=== PATIENT | female | born 1940 | race Hispanic/Latino ===

== ENCOUNTER 2018-01-22 17:34 | Inpatient (IN) | payer MEDICARE, BC ==
[2018-01-22] MEDS ORDERED: Sodium Chloride 0.9% 1,000 ML IV ONE (18:22)
[2018-01-22] MEDS ORDERED: Iohexol 240 (50 ml) ONE (18:55)
[2018-01-22 19:00] LABS: BASO % 0.3 % (0.0-2.0); EOS % 0.2 % (0.0-4.0); HEMOGLOBIN 14.3 g/dL (11.0-16.0); LYMPH # 2.5 K/uL (1.0-4.3); LYMPH % 16.8 % (20.0-40.0); MEAN CELL VOLUME 93.5 fL (81.0-99.0); MEAN CORPUSCULAR HEMOGLOBIN 33.1 pg (27.0-31.0); MEAN CORPUSCULAR HGB CONC 35.4 g/dL (33.0-37.0); MEAN PLATELET VOLUME 7.3 fL (7.2-11.7); MONO # 1.2 K/uL (0.0-0.8); MONO % 8.3 % (0.0-10.0); NEUT # 11.1 K/uL (1.8-7.0); NEUT % 74.4 % (50.0-75.0); RBC 4.32 Mil/uL (3.80-5.20); RED CELL DISTRIBUTION WIDTH 13.5 % (11.5-14.5); WHITE BLOOD COUNT 14.9 K/uL (4.8-10.8)
[2018-01-22 19:14] LABS: ALB/GLOB RATIO 1.3 (1.0-2.1); ALBUMIN 4.5 g/dL (3.5-5.0); CALCIUM 9.3 mg/dl (8.6-10.4)
[2018-01-22 19:18] LABS: SQUAMOUS EPITHIAL 8 /hpf (0-5); URINE BACTERIA RARE (<OCC); URINE BILIRUBIN NEGATIVE (NEGATIVE); URINE BLOOD 1+ (NEGATIVE); URINE CLARITY Hazy (Clear); URINE GLUCOSE (UA) NORMAL (Normal); URINE LEUKOCYTE ESTERASE 3+ Leu/uL (Negative); URINE PROTEIN 1+ mg/dL (NEGATIVE); URINE UROBILINOGEN NORMAL mg/dL (0.2-1.0)
[2018-01-22 19:27] LABS: URINE COLOR YELLOW (YELLOW)
--- NOTE | 2018-01-22 19:44 | C.PDOC ---
History Of Present Illness 77 year old female presents to the emergency department with complaints of a history of abdominal pain and nausea with vomiting. Patient reports she started experiencing these symptoms over the weekend on Saturday night (11-18-17). Patient reports she took sleeping pills on Saturday night (11-19-17) and woke up groggy the next morning. Patient reports that shortly after waking up she had a mild syncopal episode and bumped her head. Patient states later on she went out for lunch and had a decreased appetite, and started vomiting and feeling nauseated, experiencing abdominal discomfort. Patient states she had some loose stool which eventually became black. Despite her daughter trying bananas, apple sauce, and fluid, the patient was not able to tolerate anything. Patient was seen by an Urgent Care doctor this morning who did a full workup, performed a rectal exam which resulted guaiac negative, and sent the patient to the ED for a CT scan. As of this morning, the patient is still vomiting but is able to tolerate small amounts of yogurt and sips of water this afternoon without throwing up. Patient states she is supposed to leave for a cruise tomorrow morning. Time Seen by Provider: 01/22/18 18:07 Chief Complaint (Nursing): Abdominal Pain History/Exam Limitations: no limitations Onset/Duration Of Symptoms: Days (4), Intermittent Episodes (vomiting) Current Symptoms Are (Timing): Still Present Context: Food, Recent Trauma Associated Symptoms: Nausea, Vomiting, Diarrhea, Loss Of Appetite, Other ( syncope, black stool, abdominal pain) Past Medical History Reviewed: Historical Data, Nursing Documentation, Vital Signs Vital Signs: Last Vital Signs Temp 97.9 F 01/22/18 17:57 Pulse 79 01/22/18 17:57 Resp 20 01/22/18 17:57 BP 134/87 01/22/18 17:57 Pulse Ox 96 01/22/18 21:32 - Medical History PMH: HTN Surgical History: No Surg Hx Family History: States: No Known Family Hx - Social History Hx Alcohol Use: No Hx Substance Use: No - Immunization History Hx Tetanus Toxoid Vaccination: No Hx Influenza Vaccination: Yes (2017) Hx Pneumococcal Vaccination: No Review Of Systems Gastrointestinal: Positive for: Nausea, Vomiting, Abdominal Pain, Diarrhea, Melena Neurological: Positive for: Other (syncope) Physical Exam - Physical Exam Appears: Non-toxic, No Acute Distress Skin: Normal Color, Warm Head: Atraumatic, Normacephalic Eye(s): bilateral: Normal Inspection Oral Mucosa: Dry Cardiovascular: Rhythm Regular Respiratory: Normal Breath Sounds Gastrointestinal/Abdominal: Bowel Sounds (normal), Soft, No Tenderness, No Guarding, No Rebound Neurological/Psych: Oriented x3, Normal Speech, Normal Cognition ED Course And Treatment - Laboratory Results Result Diagrams: 01/22/18 18:53 01/22/18 18:53 Lab Interpretation: Abnormal (WBC 14.9 with left shift, BUN 31, UA WBC 290 culture sent) O2 Sat by Pulse Oximetry: 96 (RA) Pulse Ox Interpretation: Normal - CT Scan/US Abdomen and Pelvis w/Contrast Other Rad Studies (CT/US): Read By Radiologist, Radiology Report Reviewed CT/US Interpretation: HISTORY: VOMITING / NAUSEA. COMPARISON: No prior. FINDINGS: BOWEL: There mildly dilated small bowel loops seen centrally within the abdomen concerning for early mechanical bowel obstruction. Followup is advised. There is no hepatic or splenic enlargement. There are no masses or abnormal intra-abdominal calcifications. 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 Right hip arthroplasty. Left hip osteoarthritis. OTHER FINDINGS: None. IMPRESSION: Possible early mechanical bowel obstruction. Follow-up advised. Liver: Unremarkable. No mass. Gallbladder and bile ducts: Unremarkable. No calcified stones. No ductal dilation. Pancreas: Unremarkable. No mass. No ductal dilation. Spleen: Unremarkable. No splenomegaly. Adrenals: Unremarkable. No mass. Kidneys and ureters: Unremarkable. No solid mass. No hydronephrosis. Stomach and bowel: There is abnormal dilatation of the duodenum and proximal to mid jejunum. A. transition point is noted at the level of the mid/distal jejunum which may be related to a small internal. hernia or adhesion. No mucosal thickening. No pneumatosis. PELVIS: Appendix: No findings to suggest acute appendicitis. Bladder: Unremarkable. No mass. Reproductive: Not well-seen due to beam hardening artifact.. ABDOMEN and PELVIS: Intraperitoneal space: There is small perihepatic ascites. Pelvic ascites is present. Hazy density is. noted within the mesentery. No free air. Bones/joints: There is beam hardening artifact associated with the right total hip prosthesis which. degrades images of the pelvis. There is a levoscoliosis of the lumbar spine with advanced secondary. degenerative changes. Moderate osteoarthritis seen of the left hip. No acute fracture. No. dislocation. Soft tissues: There is a small umbilical hernia measuring 8 mm containing fat. No evidence of strain. delayed. Vasculature: Unremarkable. No abdominal aortic aneurysm. Lymph nodes: Unremarkable. No enlarged lymph nodes. IMPRESSION: 1. Acute small bowel obstruction. Transition point in mid-distal jejunum suggesting possible internal. hernia . 2. Small amount of pelvic and abdominal ascites. 3. Small hiatal hernia. Progress Note: Plan: CT Abdomen and Pelvis with Contrast. CMP. Lipase. CBC. NaCl IV Fluids. Urine Culture. Urinalysis Reevaluation Time: 21:57 Reassessment Condition: Unchanged (Patient states abdomen feels distended but is still not tender.) - Physician Consult Information Outcome Of Conversation: Case discussed with Dr Sullivan and Dr Haile. Patient to be admitted for small bowel obstruction. Disposition - Disposition Disposition: HOSPITALIZED Disposition Time: 21:58 Condition: FAIR - POA Present On Arrival: None - Clinical Impression Clinical Impression: Small bowel obstruction - Scribe Statement The provider has reviewed the documentation as recorded by the Scribe (Otoniel Doran) Provider Attestation: All medical record entries made by the Scribe were at my direction and personally dictated by me. I have reviewed the chart and agree that the record accurately reflects my personal performance of the history, physical exam, medical decision making, and the department course for this patient. I have also personally directed, reviewed, and agree with the discharge instructions and disposition.
--- NOTE | 2018-01-22 21:28 | CT ---
EXAM: CT Abdomen and Pelvis With Intravenous Contrast EXAM DATE/TIME: Exam ordered 01/22/2018 6:22 PM CLINICAL HISTORY: 77 years old, female; Pain; Abdominal pain; Generalized; Additional info: Abd pain TECHNIQUE: Axial computed tomography images of the abdomen and pelvis with intravenous contrast. All CT scans at this facility use one or more dose reduction techniques, viz.: automated exposure control; ma/kV adjustment per patient size (including targeted exams where dose is matched to indication; i.e. head); or iterative reconstruction technique. Coronal and sagittal reformatted images were created and reviewed. CONTRAST: 100 mL of omnipaque 300 administered intravenously. COMPARISON: No relevant prior studies available. FINDINGS: Lung bases: Unremarkable. No mass. No consolidation. Heart: Coronary artery calcifications present. Mediastinum: There is a small hiatal hernia. ABDOMEN: Liver: Unremarkable. No mass. Gallbladder and bile ducts: Unremarkable. No calcified stones. No ductal dilation. Pancreas: Unremarkable. No mass. No ductal dilation. Spleen: Unremarkable. No splenomegaly. Adrenals: Unremarkable. No mass. Kidneys and ureters: Unremarkable. No solid mass. No hydronephrosis. Stomach and bowel: There is abnormal dilatation of the duodenum and proximal to mid jejunum. A transition point is noted at the level of the mid/distal jejunum which may be related to a small internal hernia or adhesion. No mucosal thickening. No pneumatosis. PELVIS: Appendix: No findings to suggest acute appendicitis. Bladder: Unremarkable. No mass. Reproductive: Not well-seen due to beam hardening artifact.. ABDOMEN and PELVIS: Intraperitoneal space: There is small perihepatic ascites. Pelvic ascites is present. Hazy density is noted within the mesentery. No free air. Bones/joints: There is beam hardening artifact associated with the right total hip prosthesis which degrades images of the pelvis. There is a levoscoliosis of the lumbar spine with advanced secondary degenerative changes. Moderate osteoarthritis seen of the left hip. No acute fracture. No dislocation. Soft tissues: There is a small umbilical hernia measuring 8 mm containing fat. No evidence of strain delayed. Vasculature: Unremarkable. No abdominal aortic aneurysm. Lymph nodes: Unremarkable. No enlarged lymph nodes. IMPRESSION: 1. Acute small bowel obstruction. Transition point in mid-distal jejunum suggesting possible internal hernia . 2. Small amount of pelvic and abdominal ascites. 3. Small hiatal hernia. .
[2018-01-22] MEDS ORDERED: Potassium Chloride 20 mEq 0 ML ONE (23:33)
--- NOTE | 2018-01-22 23:41 | CP.PCM.HP ---
<Francesca Brown - Last Filed: 01/23/18 00:01> History of Present Illness - History of Present Illness History of Present Illness: H&P: 77 year old female with past medical history of HTN, gluacoma presented to hospital for abdominal discomfort and N/V. Patient states abd discomfort began about 3 days ago. Discomfort was intermittent with worsening since earlier today. Patient had one episode of vomiting earlier in the day today. She also complains of decreased appetite but was able to tolerate a very small meal earlier in the day. She states that her last BM was 3 days ago and was very small in nature. She states that now she si not passing gas but has a lot of belching. Denies having any F/C, CP, SOB, urinary symptoms. Ct of abd/pelvis done with PO contrast in ED showed acute SBO. Patient was able to tolerate PO contrast intake without any vomiting. PMHx: stated above Sx: hip replacement, tubal ligation Social: denies NKDA Meds: Ambien 10 mg po HS, Benicar HCTZ 10/12.5 mg po qd, Ecotrin 81 mg po qd, Toprol XL 50 mg po qd, Dorzolamide-Timolol ophthalmic 1 drop twice a day Present on Admission - Present on Admission Any Indicators Present on Admission: No Review of Systems - Constitutional Constitutional: absent: Chills, Fever - EENT Eyes: absent: Blurred Vision, Change in Vision, Other Visual Disturbances Nose/Mouth/Throat: absent: Nasal Congestion, Nasal Discharge, Sore Throat - Cardiovascular Cardiovascular: absent: Chest Pain, Dyspnea, Dyspnea on Exertion, Edema - Respiratory Respiratory: absent: Cough, Dyspnea, Wheezing, Chest Congestion - Gastrointestinal Gastrointestinal: Abdominal Pain, Change in Bowel Habits, Change in Stool Character, Constipation, Nausea, Vomiting. absent: Bloating, Coffee Ground Emesis, Diarrhea, Hematemesis, Hematochezia - Genitourinary Genitourinary: absent: Difficulty Urinating, Dysuria, Urinary Frequency - Musculoskeletal Musculoskeletal: absent: Back Pain, Numbness, Tingling - Integumentary Integumentary: absent: Acne, Lesions, Rash, Wounds - Neurological Neurological: absent: Syncope, Tingling, Weakness - Psychiatric Psychiatric: absent: Anxiety, Depression Past Patient History - Past Social History Smoking Status: Never Smoked Chewing Tobacco Use: No Cigar Use: No Alcohol: None Drugs: Denies - CARDIAC Hx Hypertension: Yes - HEENT Hx Glaucoma: Yes - PSYCHIATRIC Hx Substance Use: No - SURGICAL HISTORY Hx Cataract Extraction: Yes (L eye) Hx Eye Surgery: Yes (b/l Laser surgery) Hx Joint Replacement: Yes (R hip replacement) Hx Tubal Ligation: Yes - ANESTHESIA Hx Anesthesia: Yes Hx Anesthesia Reactions: No Meds Allergies/Adverse Reactions: Allergies Allergy/AdvReac Type Severity Reaction Status Date / Time antihistamine Allergy Uncoded 01/22/18 18:05 Physical Exam - Constitutional Appears: Non-toxic, No Acute Distress - Head Exam Head Exam: ATRAUMATIC, NORMOCEPHALIC - Eye Exam Eye Exam: EOMI, Normal appearance - ENT Exam ENT Exam: Mucous Membranes Moist - Respiratory Exam Respiratory Exam: Clear to Auscultation Bilateral. absent: Accessory Muscle Use , Rales, Rhonchi, Wheezes, Respiratory Distress - Cardiovascular Exam Cardiovascular Exam: REGULAR RHYTHM, +S1, +S2. absent: Diastolic murmur, Gallop , Rubs, Systolic Murmur - GI/Abdominal Exam GI & Abdominal Exam: Diminished Bowel Sounds, Soft. absent: Distended, Firm, Guarding, Hernia, Rebound, Rigid, Tenderness - Extremities Exam Extremities exam: Negative for: pedal edema, tenderness - Neurological Exam Neurological exam: Alert, Oriented x3 - Psychiatric Exam Psychiatric exam: Normal Affect, Normal Mood - Skin Skin Exam: Dry, Intact, Normal Color, Warm Results - Vital Signs Recent Vital Signs: Last Vital Signs Temp 97.9 F 01/22/18 17:57 Pulse 79 01/22/18 17:57 Resp 20 01/22/18 17:57 BP 134/87 01/22/18 17:57 Pulse Ox 96 01/22/18 21:58 - Labs Result Diagrams: 01/22/18 18:53 01/22/18 18:53 Labs: Laboratory Results - last 24 hr 01/22/18 01/22/18 01/22/18 18:53 18:53 18:53 WBC 14.9 H RBC 4.32 Hgb 14.3 Hct 40.4 MCV 93.5 MCH 33.1 H MCHC 35.4 RDW 13.5 Plt Count 350 MPV 7.3 Neut % (Auto) 74.4 Lymph % (Auto) 16.8 L [place] % (Auto) 8.3 Eos % (Auto) 0.2 Baso % (Auto) 0.3 Neut # (Auto) 11.1 H Lymph # (Auto) 2.5 [place] # (Auto) 1.2 H Eos # (Auto) 0.0 Baso # (Auto) 0.0 Sodium 134 Potassium 4.1 Chloride 88 L Carbon Dioxide 29 Anion Gap 21 H BUN 31 H Creatinine 1.1 Est GFR ( Amer) 58 Est GFR (Non-Af Amer) 48 Random Glucose 115 H Calcium 9.3 Total Bilirubin 1.4 H AST 23 ALT 20 Alkaline Phosphatase 84 Total Protein 7.9 Albumin 4.5 Globulin 3.4 Albumin/Globulin Ratio 1.3 Lipase 211 Urine Color Yellow Urine Clarity Hazy Urine pH 5.0 Ur Specific [place] 1.021 Urine Protein 1+ H Urine Glucose (UA) Normal Urine Ketones Negative Urine Blood 1+ H Urine Nitrate Negative Urine Bilirubin Negative Urine Urobilinogen Normal Ur Leukocyte Esterase 3+ H Urine WBC (Auto) 290 H Urine RBC (Auto) 23 H Ur Squamous Epith Cells 8 H Urine Bacteria Rare Hyaline Casts 11-20 H Assessment & Plan - Assessment and Plan (Free Text) Assessment: 77 year old female with past medical history of HTN, gluacoma is admitted for acute small bowel obstruction as seen on CT of abd/pelvis with PO contrast. Patient has stable VS on admission and normal WBC count. Small bowel obstruction - NG tube placed in ED drained about 700 cc. x ray ordered to assess the position for NG tube - NPO - Started on IV fluids: D5/.045NS with 20 MeQ KCl - Surgery, Dr. Sullivan consulted. - Will get EKG and chest x ray for possible pre-op HTN - Will hold home medications toprol xl and benicar/HCTZ for now - Will consider IV hypotensive medications if pt becomes HTN - Will hold Aspirin for now while pt is NPO Glaucoma - Continue home medication: Dorzolamide-Timolol ophthalmic 1 drop twice a day Insomnia - Will hold home medication, ambien Prophylaxis - Lovenox - SCDs - Protonix IV Case discussed with Dr. Haile - Date & Time Date: 01/22/18 Time: 23:44 <Lupillo Haile - Last Filed: 01/23/18 06:59> Results - Vital Signs Recent Vital Signs: Last Vital Signs Temp 98.2 F 05/17/18 01:30 Pulse 72 01/23/18 01:30 Resp 18 01/23/18 01:30 BP 123/76 01/23/18 01:30 Pulse Ox 97 01/23/18 03:27 - Labs Result Diagrams: 01/23/18 06:30 01/22/18 18:53 Labs: Laboratory Results - last 24 hr 01/22/18 01/22/18 01/22/18 18:53 18:53 18:53 WBC 14.9 H RBC 4.32 Hgb 14.3 Hct 40.4 MCV 93.5 MCH 33.1 H MCHC 35.4 RDW 13.5 Plt Count 350 MPV 7.3 Neut % (Auto) 74.4 Lymph % (Auto) 16.8 L [place] % (Auto) 8.3 Eos % (Auto) 0.2 Baso % (Auto) 0.3 Neut # (Auto) 11.1 H Lymph # (Auto) 2.5 [place] # (Auto) 1.2 H Eos # (Auto) 0.0 Baso # (Auto) 0.0 PT INR APTT Sodium 134 Potassium 4.1 Chloride 88 L Carbon Dioxide 29 Anion Gap 21 H BUN 31 H Creatinine 1.1 Est GFR ( Amer) 58 Est GFR (Non-Af Amer) 48 POC Glucose (mg/dL) Random Glucose 115 H Calcium 9.3 Total Bilirubin 1.4 H AST 23 ALT 20 Alkaline Phosphatase 84 Total Protein 7.9 Albumin 4.5 Globulin 3.4 Albumin/Globulin Ratio 1.3 Lipase 211 Urine Color Yellow Urine Clarity Hazy Urine pH 5.0 Ur Specific [place] 1.021 Urine Protein 1+ H Urine Glucose (UA) Normal Urine Ketones Negative Urine Blood 1+ H Urine Nitrate Negative Urine Bilirubin Negative Urine Urobilinogen Normal Ur Leukocyte Esterase 3+ H Urine WBC (Auto) 290 H Urine RBC (Auto) 23 H Ur Squamous Epith Cells 8 H Urine Bacteria Rare Hyaline Casts 11-20 H 01/23/18 01/23/18 01/23/18 00:16 06:30 06:30 WBC 12.1 H RBC 3.99 Hgb 13.0 Hct 37.1 MCV 93.0 MCH 32.6 H MCHC 35.1 RDW 13.6 Plt Count 309 MPV 7.4 Neut % (Auto) 70.9 Lymph % (Auto) 17.9 L [place] % (Auto) 9.5 Eos % (Auto) 1.0 Baso % (Auto) 0.7 Neut # (Auto) 8.6 H Lymph # (Auto) 2.2 [place] # (Auto) 1.1 H Eos # (Auto) 0.1 Baso # (Auto) 0.1 PT 11.2 INR 1.0 APTT 25 Sodium Potassium Chloride Carbon Dioxide Anion Gap BUN Creatinine Est GFR ( Amer) Est GFR (Non-Af Amer) POC Glucose (mg/dL) 107 Random Glucose Calcium Total Bilirubin AST ALT Alkaline Phosphatase Total Protein Albumin Globulin Albumin/Globulin Ratio Lipase Urine Color Urine Clarity Urine pH Ur Specific [place] Urine Protein Urine Glucose (UA) Urine Ketones Urine Blood Urine Nitrate Urine Bilirubin Urine Urobilinogen Ur Leukocyte Esterase Urine WBC (Auto) Urine RBC (Auto) Ur Squamous Epith Cells Urine Bacteria Hyaline Casts Attending/Attestation - Attestation I have personally seen and examined this patient.: Yes I have fully participated in the care of the patient.: Yes I have reviewed all pertinent clinical information: Yes Notes (Text): Assessment SBO with transistion in L mid abd Mild dehydration H/o htn, gloucoma, scoliosis Plan IVF NPO Pt on betablocker when possible will start, may switch to iv if needed. NG suction, 700 after initiation GI/DVT prophylaxis Surg consult See orders for detail.
[2018-01-22] MEDS: Dorzolamide 2% Opht Sol 10ml OU SCH (23:45)
[2018-01-22] MEDS: Potassium Chloride 20 MEQ in Dextrose 5%/0.45% NS 1,000 ML IV SCH (23:59)
--- NOTE | 2018-01-23 04:43 | CP.PCM.CON ---
History of Present Illness - History of Present Illness History of Present Illness: General Surgery Consult Note for Dr. Sullivan This is a 77F on ASA with a PMH of HTN and Glaucoma who presents to the ED with abdominal pain since Saturday. She reports that on saturday she feel and hit her head causing a welt however she denies and LOC or neurological changes. Saturday she had a large mean fallowed by a tarry stool on saturday no other BM since that time. She reports that she usually passes a significant amount of flatus however she does not recall last time she passed flatus possibly a few days. She reports nausea and vomiting at home however she denies significant abdominal pain. She reports this is the first time she has had an incident like this. Her only abdominal surgery was a tubal ligation 41 years ago. NGT was placed in the ED and over the first half hour had 700cc of gastric/bilious output. Of note patient has never had an endoscopy or colonoscopy. PMH: stated above Sx: hip replacement, tubal ligation All: MKDA Social: denies Review of Systems - Constitutional Constitutional: Anorexia. absent: Chills - Cardiovascular Cardiovascular: absent: Chest Pain, Dyspnea - Respiratory Respiratory: absent: Dyspnea - Gastrointestinal Gastrointestinal: Belching, Bloating, Nausea, Vomiting - Genitourinary Genitourinary: absent: Difficulty Urinating, Dysuria Past Patient History - Past Social History Smoking Status: Never Smoked - CARDIAC Hx Hypertension: Yes - PULMONARY Hx Respiratory Disorders: No - NEUROLOGICAL Hx Neurological Disorder: No - HEENT Hx Glaucoma: Yes - RENAL Hx Chronic Kidney Disease: No - ENDOCRINE/METABOLIC Hx Endocrine Disorders: No - HEMATOLOGICAL/ONCOLOGICAL Hx Blood Disorders: No - INTEGUMENTARY Hx Dermatological Problems: No - MUSCULOSKELETAL/RHEUMATOLOGICAL Hx Musculoskeletal Disorders: No Hx Falls: No - GASTROINTESTINAL Hx Gastrointestinal Disorders: No - GENITOURINARY/GYNECOLOGICAL Hx Genitourinary Disorders: No - PSYCHIATRIC Hx Psychophysiologic Disorder: No Hx Substance Use: No - SURGICAL HISTORY Hx Cataract Extraction: Yes (L eye) Hx Eye Surgery: Yes (b/l Laser surgery) Hx Joint Replacement: Yes (R hip replacement) Hx Tubal Ligation: Yes - ANESTHESIA Hx Anesthesia: Yes Hx Anesthesia Reactions: No Meds Allergies/Adverse Reactions: Allergies Allergy/AdvReac Type Severity Reaction Status Date / Time antihistamine Allergy Uncoded 01/22/18 18:05 - Medications Medications: Current Medications Acetaminophen (Tylenol 325mg Tab) 650 mg PO Q6 PRN PRN Reason: Fever >100.4 F Dorzolamide HCl (Trusopt) 0 ml OU BID [facility] Last Admin: 01/22/18 23:45 Dose: Not Given Enoxaparin Sodium (Lovenox) 40 mg SC DAILY [facility] Potassium Chloride 20 meq/ (Dextrose/Sodium Chloride) 1,010 mls @ 100 mls/hr IV .Q10H6M [facility] Last Admin: 01/22/18 23:59 Dose: 100 mls/hr Ondansetron HCl (Zofran Inj) 4 mg IVP Q6 PRN PRN Reason: Nausea/Vomiting Pantoprazole Sodium (Protonix Inj) 40 mg IVP DAILY [facility] Timolol Maleate (Timoptic 0.5% Ophth Soln) 0 drop OU BID [facility] Last Admin: 01/23/18 01:08 Dose: Not Given Physical Exam - Constitutional Appears: Non-toxic, No Acute Distress - Head Exam Head Exam: ATRAUMATIC, NORMOCEPHALIC - Eye Exam Eye Exam: EOMI, Normal appearance - ENT Exam ENT Exam: Mucous Membranes Moist - Respiratory Exam Respiratory Exam: NORMAL BREATHING PATTERN - Cardiovascular Exam Cardiovascular Exam: +S1, +S2 - GI/Abdominal Exam GI & Abdominal Exam: Soft. absent: Distended, Firm, Guarding, Hernia - Neurological Exam Neurological exam: Alert, Oriented x3 - Psychiatric Exam Psychiatric exam: Normal Affect, Normal Mood - Skin Skin Exam: Dry, Intact, Normal Color Results - Vital Signs Recent Vital Signs: Last Vital Signs Temp 98.2 F 01/23/18 01:30 Pulse 72 01/23/18 01:30 Resp 18 01/23/18 01:30 BP 123/76 01/23/18 01:30 Pulse Ox 97 01/23/18 03:27 - Labs Result Diagrams: 01/22/18 18:53 01/22/18 18:53 Labs: Laboratory Results - last 24 hr 01/22/18 01/22/18 01/22/18 18:53 18:53 18:53 WBC 14.9 H RBC 4.32 Hgb 14.3 Hct 40.4 MCV 93.5 MCH 33.1 H MCHC 35.4 RDW 13.5 Plt Count 350 MPV 7.3 Neut % (Auto) 74.4 Lymph % (Auto) 16.8 L [place] % (Auto) 8.3 Eos % (Auto) 0.2 Baso % (Auto) 0.3 Neut # (Auto) 11.1 H Lymph # (Auto) 2.5 [place] # (Auto) 1.2 H Eos # (Auto) 0.0 Baso # (Auto) 0.0 Sodium 134 Potassium 4.1 Chloride 88 L Carbon Dioxide 29 Anion Gap 21 H BUN 31 H Creatinine 1.1 Est GFR ( Amer) 58 Est GFR (Non-Af Amer) 48 POC Glucose (mg/dL) Random Glucose 115 H Calcium 9.3 Total Bilirubin 1.4 H AST 23 ALT 20 Alkaline Phosphatase 84 Total Protein 7.9 Albumin 4.5 Globulin 3.4 Albumin/Globulin Ratio 1.3 Lipase 211 Urine Color Yellow Urine Clarity Hazy Urine pH 5.0 Ur Specific [place] 1.021 Urine Protein 1+ H Urine Glucose (UA) Normal Urine Ketones Negative Urine Blood 1+ H Urine Nitrate Negative Urine Bilirubin Negative Urine Urobilinogen Normal Ur Leukocyte Esterase 3+ H Urine WBC (Auto) 290 H Urine RBC (Auto) 23 H Ur Squamous Epith Cells 8 H Urine Bacteria Rare Hyaline Casts 11-20 H 01/23/ 00:16 WBC RBC Hgb Hct MCV MCH MCHC RDW Plt Count MPV Neut % (Auto) Lymph % (Auto) [place] % (Auto) Eos % (Auto) Baso % (Auto) Neut # (Auto) Lymph # (Auto) [place] # (Auto) Eos # (Auto) Baso # (Auto) Sodium Potassium Chloride Carbon Dioxide Anion Gap BUN Creatinine Est GFR ( Amer) Est GFR (Non-Af Amer) POC Glucose (mg/dL) 107 Random Glucose Calcium Total Bilirubin AST ALT Alkaline Phosphatase Total Protein Albumin Globulin Albumin/Globulin Ratio Lipase Urine Color Urine Clarity Urine pH Ur Specific [place] Urine Protein Urine Glucose (UA) Urine Ketones Urine Blood Urine Nitrate Urine Bilirubin Urine Urobilinogen Ur Leukocyte Esterase Urine WBC (Auto) Urine RBC (Auto) Ur Squamous Epith Cells Urine Bacteria Hyaline Casts - Imaging and Cardiology CT scan - abdomen Status: Image reviewed by me, Report reviewed by me Assessment & Plan - Assessment and Plan (Free Text) Assessment: 77F with Small Bowel obstruction NPO IVF NGT to suction Monitor bowel function Continue care by primary team Will continue to follow D/W Dr. Nate Meier PGY2
[2018-01-23 06:41] LABS: BASO # 0.1 K/uL (0.0-0.2); BASO % 0.7 % (0.0-2.0); EOS # 0.1 K/uL (0.0-0.7); LYMPH # 2.2 K/uL (1.0-4.3); LYMPH % 17.9 % (20.0-40.0); MEAN CORPUSCULAR HEMOGLOBIN 32.6 pg (27.0-31.0); MEAN CORPUSCULAR HGB CONC 35.1 g/dL (33.0-37.0); MEAN PLATELET VOLUME 7.4 fL (7.2-11.7); MONO # 1.1 K/uL (0.0-0.8); MONO % 9.5 % (0.0-10.0); NEUT # 8.6 K/uL (1.8-7.0); NEUT % 70.9 % (50.0-75.0); NRBC % 0.1 % (0.0-2.0); RBC 3.99 Mil/uL (3.80-5.20); RED CELL DISTRIBUTION WIDTH 13.6 % (11.5-14.5); WHITE BLOOD COUNT 12.1 K/uL (4.8-10.8)
[2018-01-23 06:47] LABS: PROTHROMBIN TIME 11.2 SECONDS (9.7-12.2)
[2018-01-23 07:27] LABS: ALB/GLOB RATIO 1.3 (1.0-2.1); ALBUMIN 3.7 g/dL (3.5-5.0); ALT/SGPT 22 U/L (9-52); AST/SGOT 27 U/L (14-36); BLOOD UREA NITROGEN 21 mg/dL (7-17); CALCIUM 8.8 mg/dl (8.6-10.4); GFR AFRICAN-AMERICAN > 60; GFR NON-AFRICAN AMERICAN 53
--- NOTE | 2018-01-23 07:43 | CP.PCM.PN ---
<Darleen Ahmadi - Last Filed: 01/23/18 13:51> Subjective - Date & Time of Evaluation Date of Evaluation: 01/23/18 Time of Evaluation: 07:00 - Subjective Subjective: Medicine Progress Note: Patient was seen and examined at bedside in the AM. Patient states she no longer is having abdominal pain just discomfort in her nose due to the tube. She denies nausea or vomiting since admission. She states this is the first time this has happened. She states her last bowel movement was on Saturday and her stool was black. She states she has never had a colonoscopy. Objective - Vital Signs/Intake and Output Vital Signs (last 24 hours): Temp Pulse Resp BP Pulse Ox 98.2 F 72 18 123/76 97 01/23/18 01:30 01/23/18 01:30 01/23/18 01:30 01/23/18 01:30 01/23/18 03:27 Intake and Output: 01/23/18 01/23/18 06:59 18:59 Intake Total 1800 Output Total 1500 Balance 300 - Medications Medications: Current Medications Acetaminophen (Tylenol 325mg Tab) 650 mg PO Q6 PRN PRN Reason: Fever >100.4 F Dorzolamide HCl (Trusopt) 0 ml OU BID [facility] Last Admin: 01/22/18 23:45 Dose: Not Given Enoxaparin Sodium (Lovenox) 40 mg SC DAILY [facility] Potassium Chloride 20 meq/ (Dextrose/Sodium Chloride) 1,010 mls @ 100 mls/hr IV .Q10H6M [facility] Last Admin: 01/22/18 23:59 Dose: 100 mls/hr Ondansetron HCl (Zofran Inj) 4 mg IVP Q6 PRN PRN Reason: Nausea/Vomiting Pantoprazole Sodium (Protonix Inj) 40 mg IVP DAILY [facility] Timolol Maleate (Timoptic 0.5% Ophth Soln) 0 drop OU BID [facility] Last Admin: 01/23/18 01:08 Dose: Not Given - Labs Labs: 01/23/18 06:30 01/23/18 06:30 PT 11.2 SECONDS (9.7-12.2) 01/23/18 06:30 INR 1.0 01/23/18 06:30 APTT 25 SECONDS (21-34) 01/23/18 06:30 - Constitutional Appears: No Acute Distress - Head Exam Head Exam: ATRAUMATIC, NORMAL INSPECTION - Eye Exam Eye Exam: EOMI, Normal appearance - ENT Exam ENT Exam: Mucous Membranes Moist Additional comments: NG tube - Respiratory Exam Respiratory Exam: Clear to Ausculation Bilateral, NORMAL BREATHING PATTERN - Cardiovascular Exam Cardiovascular Exam: REGULAR RHYTHM, +S1, +S2 - GI/Abdominal Exam GI & Abdominal Exam: Soft, Normal Bowel Sounds. absent: Tenderness - Rectal Exam Rectal Exam: NORMAL INSPECTION. absent: Black Stool, Bloody Stool, Hemorrhoids - Extremities Exam Extremities Exam: Normal Inspection. absent: Pedal Edema, Tenderness - Neurological Exam Neurological Exam: Alert, Awake, Oriented x3 - Psychiatric Exam Psychiatric exam: Normal Affect, Normal Mood - Skin Skin Exam: Normal Color Assessment and Plan - Assessment and Plan (Free Text) Assessment: 1.) Small bowel obstruction - CT abd/pelvis: Acute small bowel obstruction. Transition point in mid-distal jejunum suggesting possible internal hernia. Small amount of pelvic and abdominal ascites. Small hiatal hernia. - EKG: NSR - NG tube placed in ED drained about 900cc - Chest X-ray: NG tube extending into the stomach. - Surgery, Dr. Sullivan consulted --> help appreciated - per surgery - no surgical recommendation needed at this time - NPO - Started on IV fluids: D5/.045NS with 20 MeQ KCl - f/u chest xray 01/24/18 - GI Consult: Dr. Mariano --> help appreciated - per Dr. Mariano patient will have a colonoscopy as an outpatient 2.) Leukocytosis secondary to SBO - WBC 14.9 --> 12.1 - Medications * Metronidazole 500mg q8h * Zosyn 3.375gm q8h 3.) History of HTN - Will hold home medications toprol xl and benicar/HCTZ for now - Will hold Aspirin for now while pt is NPO 4.) History of Glaucoma - Continue home medication: Dorzolamide-Timolol ophthalmic 1 drop twice a day 5.) History of Insomnia - Will hold home medication, ambien 6.) Prophylaxis - Lovenox 40mg SC daily - SCDs - Protonix IV Case discussed with Dr. Paty Ahmadi PGY-1 <Naman Newman - Last Filed: 01/23/18 15:55> Objective - Vital Signs/Intake and Output Vital Signs (last 24 hours): Temp Pulse Resp BP Pulse Ox 98.2 F 72 18 123/76 97 01/23/18 01:30 01/23/18 01:30 01/23/18 01:30 01/23/18 01:30 01/23/18 03:27 Intake and Output: 01/23/18 01/23/18 06:59 18:59 Intake Total 1800 Output Total 1500 Balance 300 - Medications Medications: Current Medications Acetaminophen (Tylenol 325mg Tab) 650 mg PO Q6 PRN PRN Reason: Fever >100.4 F Dorzolamide HCl (Trusopt) 0 ml OU BID [facility] Last Admin: 01/23/18 12:30 Dose: Not Given Enoxaparin Sodium (Lovenox) 40 mg SC DAILY [facility] Last Admin: 01/23/18 11:03 Dose: 40 mg Potassium Chloride 20 meq/ (Dextrose/Sodium Chloride) 1,010 mls @ 100 mls/hr IV .Q10H6M [facility] Last Admin: 01/22/18 23:59 Dose: 100 mls/hr Metronidazole (Flagyl) 500 mg in 100 mls @ 100 mls/hr IVPB Q8 [facility] PRN Reason: Protocol Last Admin: 01/23/18 13:44 Dose: 100 mls/hr Piperacillin Sod/Tazobactam (Sod 3.375 gm/ Sodium Chloride) 100 mls @ 200 mls/ hr IVPB Q8H [facility] PRN Reason: Protocol Last Admin: 01/23/18 12:24 Dose: 200 mls/hr Ondansetron HCl (Zofran Inj) 4 mg IVP Q6 PRN PRN Reason: Nausea/Vomiting Pantoprazole Sodium (Protonix Inj) 40 mg IVP DAILY [facility] Last Admin: 01/23/18 11:03 Dose: 40 mg Timolol Maleate (Timoptic 0.5% Ophth Soln) 0 drop OU BID [facility] Last Admin: 01/23/18 12:28 Dose: Not Given - Labs Labs: 01/23/18 06:30 01/23/18 06:30 PT 11.2 SECONDS (9.7-12.2) 01/23/18 06:30 INR 1.0 01/23/18 06:30 APTT 25 SECONDS (21-34) 01/23/18 06:30 Attending/Attestation - Attestation I have personally seen and examined this patient.: Yes I have fully participated in the care of the patient.: Yes I have reviewed all pertinent clinical information, including history, physical exam and plan: Yes Notes (Text): 01/23/18 15:50 Medical attending: Patient was seen and examined by me. Agree with the above note by the resident. Patient was with family members at bedside and she was ok with this. The patient has NGT which was placed earlier. It is still pulling out dark billious like material. She denied having pain or discomfort. Abdomen was soft on exam. She reported feeling much relief since previous night. Currently on IVF She has never had colonscopy before. Patient reports she has had weightloss - she thinks from her diet Rectal exam done and stool sent for blood Naman Newman
--- NOTE | 2018-01-23 08:23 | RAD ---
Chest x-ray single frontal view History: Preoperative evaluation. Comparison: None available. Findings: NG tube extending into the stomach. Patchy increased markings at the left lung base may represent atelectasis and or infiltrate. Additional mild linear atelectatic changes at the right lung base. Biapical pleural thickening with upper lobe granulomatous changes. Right hilar prominence. Mild venous congestion. Tortuous aorta. Mild cardiomegaly. Degenerative changes in the spine with paravertebral osteophytes. Impression: NG tube extending into the stomach. Patchy increased markings at the left lung base may represent atelectasis and or infiltrate. Additional mild linear atelectatic changes at the right lung base. Biapical pleural thickening with upper lobe granulomatous changes. Right hilar prominence. Mild venous congestion. Tortuous aorta. Mild cardiomegaly. Degenerative changes in the spine with paravertebral osteophytes.
[2018-01-23] MEDS ORDERED: Enoxaparin 40 mg Syringe SC SCH (10:00)
[2018-01-23] MEDS ORDERED: Potassium Ch 20mEq in D5-1/2NS 1,000 ML IV SCH (10:00)
[2018-01-23] MEDS: Piperacillin/Tazobact 3.375 GM in Sodium Chloride 100 ML IVPB SCH ×2 (12:24→21:06)
[2018-01-23] MEDS: Dorzolamide 2% Opht Sol 10ml OU SCH ×2 (12:30→22:14)
[2018-01-23] MEDS: metroNIDAZOLE IV 500 mg/100 ml 500 MG/100 ML BAG IVPB SCH ×2 (13:44→22:07)
--- NOTE | 2018-01-23 14:44 | CP.PCM.CON ---
History of Present Illness - History of Present Illness History of Present Illness: this is a 77 year old woman with abdominal pain, nausea and vomiting. Patient noted onset of upper abdominal pain, vague, five days ago. She took two doses of Pepto-Bismol and had three stools over the weekend. On Saturday night, she noted that the pain worsened after eating, and she developed nausea and vomiting. She has not had a bowel movment since Saturday, and has not passed flatus since admission. She denies having diarrhea, difficulty swallowing or heartburn. Her appetite has been good, and she has lost thirty pounds in the past year with [employer]. On evaluation in the ER, CT scan showed dilatation of the duodenum and proximal jejunum, with a transition point at the level of the mid to distal jejunum, possibly due to an internal hernia or adhesive band. Review of Systems - Constitutional Constitutional: Weight Loss. absent: Chills, Fever - EENT Eyes: absent: Change in Vision - Cardiovascular Cardiovascular: absent: Chest Pain, Dyspnea - Respiratory Respiratory: absent: Cough, Wheezing - Gastrointestinal Gastrointestinal: Abdominal Pain, Melena, Nausea, Vomiting. absent: Dysphagia, Heartburn, Hematemesis, Hematochezia - Genitourinary Genitourinary: absent: Difficulty Urinating - Musculoskeletal Musculoskeletal: absent: Back Pain - Neurological Neurological: Syncope Past Patient History - Past Social History Smoking Status: Never Smoked - CARDIAC Hx Hypertension: Yes - PULMONARY Hx Respiratory Disorders: No - NEUROLOGICAL Hx Neurological Disorder: No - HEENT Hx Glaucoma: Yes - RENAL Hx Chronic Kidney Disease: No - ENDOCRINE/METABOLIC Hx Endocrine Disorders: No - HEMATOLOGICAL/ONCOLOGICAL Hx Blood Disorders: No - INTEGUMENTARY Hx Dermatological Problems: No - MUSCULOSKELETAL/RHEUMATOLOGICAL Hx Musculoskeletal Disorders: No Hx Falls: No - GASTROINTESTINAL Hx Gastrointestinal Disorders: No - GENITOURINARY/GYNECOLOGICAL Hx Genitourinary Disorders: No - PSYCHIATRIC Hx Psychophysiologic Disorder: No Hx Substance Use: No - SURGICAL HISTORY Hx Cataract Extraction: Yes (L eye) Hx Eye Surgery: Yes (b/l Laser surgery) Hx Joint Replacement: Yes (R hip replacement) Hx Tubal Ligation: Yes - ANESTHESIA Hx Anesthesia: Yes Hx Anesthesia Reactions: No Meds Allergies/Adverse Reactions: Allergies Allergy/AdvReac Type Severity Reaction Status Date / Time antihistamine Allergy Uncoded 01/22/18 18:05 - Medications Medications: Current Medications Acetaminophen (Tylenol 325mg Tab) 650 mg PO Q6 PRN PRN Reason: Fever >100.4 F Dorzolamide HCl (Trusopt) 0 ml OU BID [facility] Last Admin: 01/23/18 12:30 Dose: Not Given Enoxaparin Sodium (Lovenox) 40 mg SC DAILY [facility] Last Admin: 01/23/18 11:03 Dose: 40 mg Potassium Chloride 20 meq/ (Dextrose/Sodium Chloride) 1,010 mls @ 100 mls/hr IV .Q10H6M [facility] Last Admin: 01/22/18 23:59 Dose: 100 mls/hr Metronidazole (Flagyl) 500 mg in 100 mls @ 100 mls/hr IVPB Q8 [facility] PRN Reason: Protocol Last Admin: 01/23/18 13:44 Dose: 100 mls/hr Piperacillin Sod/Tazobactam (Sod 3.375 gm/ Sodium Chloride) 100 mls @ 200 mls/ hr IVPB Q8H [facility] PRN Reason: Protocol Last Admin: 01/23/18 12:24 Dose: 200 mls/hr Ondansetron HCl (Zofran Inj) 4 mg IVP Q6 PRN PRN Reason: Nausea/Vomiting Pantoprazole Sodium (Protonix Inj) 40 mg IVP DAILY [facility] Last Admin: 01/23/18 11:03 Dose: 40 mg Timolol Maleate (Timoptic 0.5% Ophth Soln) 0 drop OU BID [facility] Last Admin: 01/23/18 12:28 Dose: Not Given Physical Exam - Constitutional Appears: In Acute Distress - Head Exam Head Exam: ATRAUMATIC, NORMOCEPHALIC Additional comments: NG tube in place - Eye Exam Eye Exam: EOMI, PERRL - Neck Exam Neck exam: Negative for: Lymphadenopathy, Thyromegaly - Respiratory Exam Respiratory Exam: NORMAL BREATHING PATTERN. absent: Rales, Rhonchi, Wheezes - Cardiovascular Exam Cardiovascular Exam: REGULAR RHYTHM, +S1, +S2. absent: Rubs, Systolic Murmur - GI/Abdominal Exam GI & Abdominal Exam: Distended, Hypoactive Bowel Sounds, Soft. absent: Rebound , Tenderness - Rectal Exam Rectal Exam: Deferred - Extremities Exam Extremities exam: Negative for: calf tenderness, pedal edema Results - Vital Signs Recent Vital Signs: Last Vital Signs Temp 98.2 F 01/23/18 01:30 Pulse 72 01/23/18 01:30 Resp 18 01/23/18 01:30 BP 123/76 01/23/18 01:30 Pulse Ox 97 01/23/18 03:27 - Labs Result Diagrams: 01/23/18 06:30 01/23/18 06:30 Labs: Laboratory Results - last 24 hr 01/22/18 01/22/18 01/22/18 18:53 18:53 18:53 WBC 14.9 H RBC 4.32 Hgb 14.3 Hct 40.4 MCV 93.5 MCH 33.1 H MCHC 35.4 RDW 13.5 Plt Count 350 MPV 7.3 Neut % (Auto) 74.4 Lymph % (Auto) 16.8 L Carbon % (Auto) 8.3 Eos % (Auto) 0.2 Baso % (Auto) 0.3 Neut # (Auto) 11.1 H Lymph # (Auto) 2.5 Carbon # (Auto) 1.2 H Eos # (Auto) 0.0 Baso # (Auto) 0.0 PT INR APTT Sodium 134 Potassium 4.1 Chloride 88 L Carbon Dioxide 29 Anion Gap 21 H BUN 31 H Creatinine 1.1 Est GFR ( Amer) 58 Est GFR (Non-Af Amer) 48 POC Glucose (mg/dL) Random Glucose 115 H Calcium 9.3 Total Bilirubin 1.4 H AST 23 ALT 20 Alkaline Phosphatase 84 Total Protein 7.9 Albumin 4.5 Globulin 3.4 Albumin/Globulin Ratio 1.3 Lipase 211 Urine Color Yellow Urine Clarity Hazy Urine pH 5.0 Ur Specific [place] 1.021 Urine Protein 1+ H Urine Glucose (UA) Normal Urine Ketones Negative Urine Blood 1+ H Urine Nitrate Negative Urine Bilirubin Negative Urine Urobilinogen Normal Ur Leukocyte Esterase 3+ H Urine WBC (Auto) 290 H Urine RBC (Auto) 23 H Ur Squamous Epith Cells 8 H Urine Bacteria Rare Hyaline Casts 11-20 H 01/23/18 01/23/18 01/23/18 00:16 06:30 06:30 WBC 12.1 H RBC 3.99 Hgb 13.0 Hct 37.1 MCV 93.0 MCH 32.6 H MCHC 35.1 RDW 13.6 Plt Count 309 MPV 7.4 Neut % (Auto) 70.9 Lymph % (Auto) 17.9 L Carbon % (Auto) 9.5 Eos % (Auto) 1.0 Baso % (Auto) 0.7 Neut # (Auto) 8.6 H Lymph # (Auto) 2.2 Carbon # (Auto) 1.1 H Eos # (Auto) 0.1 Baso # (Auto) 0.1 PT 11.2 INR 1.0 APTT 25 Sodium Potassium Chloride Carbon Dioxide Anion Gap BUN Creatinine Est GFR ( Amer) Est GFR (Non-Af Amer) POC Glucose (mg/dL) 107 Random Glucose Calcium Total Bilirubin AST ALT Alkaline Phosphatase Total Protein Albumin Globulin Albumin/Globulin Ratio Lipase Urine Color Urine Clarity Urine pH Ur Specific [place] Urine Protein Urine Glucose (UA) Urine Ketones Urine Blood Urine Nitrate Urine Bilirubin Urine Urobilinogen Ur Leukocyte Esterase Urine WBC (Auto) Urine RBC (Auto) Ur Squamous Epith Cells Urine Bacteria Hyaline Casts 01/23/18 06:30 WBC RBC Hgb Hct MCV MCH MCHC RDW Plt Count MPV Neut % (Auto) Lymph % (Auto) Carbon % (Auto) Eos % (Auto) Baso % (Auto) Neut # (Auto) Lymph # (Auto) Carbon # (Auto) Eos # (Auto) Baso # (Auto) PT INR APTT Sodium 132 Potassium 3.5 L Chloride 91 L Carbon Dioxide 31 H Anion Gap 14 BUN 21 H Creatinine 1.0 Est GFR ( Amer) > 60 Est GFR (Non-Af Amer) 53 POC Glucose (mg/dL) Random Glucose 115 H Calcium 8.8 Total Bilirubin 1.2 AST 27 ALT 22 Alkaline Phosphatase 66 Total Protein 6.4 Albumin 3.7 Globulin 2.8 Albumin/Globulin Ratio 1.3 Lipase Urine Color Urine Clarity Urine pH Ur Specific [place] Urine Protein Urine Glucose (UA) Urine Ketones Urine Blood Urine Nitrate Urine Bilirubin Urine Urobilinogen Ur Leukocyte Esterase Urine WBC (Auto) Urine RBC (Auto) Ur Squamous Epith Cells Urine Bacteria Hyaline Casts Assessment & Plan (1) Small bowel obstruction Assessment and Plan: 77 year old woman without prior abdominal surgery presents with abdominal pain followed by nausea and vomiting. CT scan shows SBO with transition point in th emid to distal jejunum, possible internal hernia or band. She will be observed ; NG suction will be continued; possible exploratory laparotomy for tomorrow. Colonoscopy may be scheduled as an outpatient. Status: Acute
[2018-01-23] MEDS: Potassium Chloride 20 MEQ in Dextrose 5%/0.45% NS 1,000 ML IV SCH (17:54)
[2018-01-24] MEDS: Piperacillin/Tazobact 3.375 GM in Sodium Chloride 100 ML IVPB SCH ×3 (05:23→21:43)
[2018-01-24] MEDS: metroNIDAZOLE IV 500 mg/100 ml 500 MG/100 ML BAG IVPB SCH ×3 (05:23→21:43)
[2018-01-24] MEDS: Potassium Chloride 20 MEQ in Dextrose 5%/0.45% NS 1,000 ML IV SCH (06:27)
--- NOTE | 2018-01-24 07:53 | CP.PCM.PN ---
Subjective - Date & Time of Evaluation Date of Evaluation: 01/24/18 Time of Evaluation: 07:52 - Subjective Subjective: no bm or flatus plan laparoscopy/laparotomy today Objective - Vital Signs/Intake and Output Vital Signs (last 24 hours): Temp Pulse Resp BP Pulse Ox 99.7 F H 77 17 114/73 91 L 01/23/18 23:38 01/23/18 23:38 01/23/18 23:38 01/23/18 23:38 01/23/18 23:38 Intake and Output: 01/24/18 01/24/18 06:59 18:59 Output Total 700 Balance -700 - Medications Medications: Current Medications Acetaminophen (Tylenol 325mg Tab) 650 mg PO Q6 PRN PRN Reason: Fever >100.4 F Dorzolamide HCl (Trusopt) 0 ml OU BID [facility] Last Admin: 01/23/18 22:14 Dose: Not Given Enoxaparin Sodium (Lovenox) 40 mg SC DAILY [facility] Last Admin: 01/23/18 11:03 Dose: 40 mg Potassium Chloride 20 meq/ (Dextrose/Sodium Chloride) 1,010 mls @ 100 mls/hr IV .Q10H6M [facility] Last Admin: 01/24/18 06:27 Dose: 100 mls/hr Metronidazole (Flagyl) 500 mg in 100 mls @ 100 mls/hr IVPB Q8 [facility] PRN Reason: Protocol Last Admin: 01/24/18 05:23 Dose: 100 mls/hr Piperacillin Sod/Tazobactam (Sod 3.375 gm/ Sodium Chloride) 100 mls @ 200 mls/ hr IVPB Q8H [facility] PRN Reason: Protocol Last Admin: 01/24/18 05:23 Dose: 200 mls/hr Ondansetron HCl (Zofran Inj) 4 mg IVP Q6 PRN PRN Reason: Nausea/Vomiting Pantoprazole Sodium (Protonix Inj) 40 mg IVP DAILY [facility] Last Admin: 01/23/18 11:03 Dose: 40 mg Timolol Maleate (Timoptic 0.5% Ophth Soln) 0 drop OU BID [facility] Last Admin: 01/23/18 22:14 Dose: Not Given Zolpidem Tartrate (Ambien) 5 mg NG HS [facility] Last Admin: 01/23/18 22:09 Dose: Not Given - Labs Labs: 01/23/18 06:30 01/23/18 06:30 PT 11.2 SECONDS (9.7-12.2) 01/23/18 06:30 INR 1.0 01/23/18 06:30 APTT 25 SECONDS (21-34) 01/23/18 06:30
--- NOTE | 2018-01-24 08:09 | RAD ---
Chest x-ray single frontal view History: Chest pain. Comparison: 01/22/2018 Findings: Lines and tubes in stable position. Consolidative changes at the lung bases and right infrahilar region. Right hilar prominence. Biapical pleural thickening with upper lobe granulomatous changes. Mild nodularity in the right suprahilar region. Enlarged ectatic aorta. Mild cardiomegaly. Degenerative changes in the spine. Impression: Lines and tubes in stable position. Consolidative changes at the lung bases and right infrahilar region. Right hilar prominence. Biapical pleural thickening with upper lobe granulomatous changes. Mild nodularity in the right suprahilar region. Enlarged ectatic aorta. Mild cardiomegaly. Degenerative changes in the spine.
--- NOTE | 2018-01-24 08:35 | RAD ---
Abdomen three views History: Abdominal pain. Comparison: 01/22/2018 Findings: NG tube extending into the stomach. Linear consolidative changes at the left lung base. Prominent degenerative changes in the spine with a prominent levoscoliotic curvature. Right hip prosthesis. Severe degenerative changes at the level of the left hip. Retained contrast within the urinary bladder. Persistent multiple dilated loops of small bowel in the right elliot abdomen suggestive for small bowel obstruction. Fecal retention in the right hemicolon. Suggestion of some retained contrast within the left kidney. Calcified phleboliths in the pelvis. Impression: Persistent multiple dilated loops of small bowel in the right elliot abdomen suggestive for small bowel obstruction. Fecal retention in the right hemicolon.
[2018-01-24 09:07] LABS: BASO # 0.1 K/uL (0.0-0.2); BASO % 0.4 % (0.0-2.0); EOS # 0.1 K/uL (0.0-0.7); EOS % 1.1 % (0.0-4.0); HEMOGLOBIN 13.6 g/dL (11.0-16.0); LYMPH # 1.8 K/uL (1.0-4.3); LYMPH % 14.2 % (20.0-40.0); MEAN CELL VOLUME 94.6 fL (81.0-99.0); MEAN CORPUSCULAR HEMOGLOBIN 32.8 pg (27.0-31.0); MEAN CORPUSCULAR HGB CONC 34.6 g/dL (33.0-37.0); MEAN PLATELET VOLUME 7.5 fL (7.2-11.7); MONO # 1.1 K/uL (0.0-0.8); MONO % 8.5 % (0.0-10.0); NEUT # 9.8 K/uL (1.8-7.0); NEUT % 75.8 % (50.0-75.0); RBC 4.14 Mil/uL (3.80-5.20); RED CELL DISTRIBUTION WIDTH 13.3 % (11.5-14.5); WHITE BLOOD COUNT 12.9 K/uL (4.8-10.8)
[2018-01-24 09:16] LABS: ALB/GLOB RATIO 1.3 (1.0-2.1); ALBUMIN 3.8 g/dL (3.5-5.0); ALT/SGPT 17 U/L (9-52); AST/SGOT 23 U/L (14-36); BLOOD UREA NITROGEN 14 mg/dL (7-17); CALCIUM 8.8 mg/dl (8.6-10.4); GFR AFRICAN-AMERICAN > 60; GFR NON-AFRICAN AMERICAN 53
[2018-01-24] MEDS: Dorzolamide 2% Opht Sol 10ml OU SCH ×2 (10:23→18:27)
--- NOTE | 2018-01-24 11:23 | CP.PCM.PN ---
<Stella Nagel - Last Filed: 01/24/18 11:20> Subjective - Date & Time of Evaluation Date of Evaluation: 01/24/18 Time of Evaluation: 08:00 - Subjective Subjective: Medicine Note for Hospitalist Service- Dr. Newman Patient was and seen and examined at bedside. Patient denies any bowel movement or passing flatus. Her abdomen is soft, still distended, but has less abdominal pain. Denied fever, chills, headache, chest pain, n/v/d/c, or urinary symptoms. Objective - Vital Signs/Intake and Output Vital Signs (last 24 hours): Temp Pulse Resp BP Pulse Ox 97.8 F 63 18 113/78 99 01/24/18 07:00 01/24/18 07:00 01/24/18 07:00 01/24/18 07:00 01/24/18 07:00 Intake and Output: 01/24/18 01/24/18 06:59 18:59 Output Total 700 Balance -700 - Medications Medications: Current Medications Acetaminophen (Tylenol 325mg Tab) 650 mg PO Q6 PRN PRN Reason: Fever >100.4 F Dorzolamide HCl (Trusopt) 0 ml OU BID [facility] Last Admin: 01/24/18 10:23 Dose: Not Given Enoxaparin Sodium (Lovenox) 40 mg SC DAILY [facility] Last Admin: 01/23/18 11:03 Dose: 40 mg Potassium Chloride 20 meq/ (Dextrose/Sodium Chloride) 1,010 mls @ 100 mls/hr IV .Q10H6M [facility] Last Admin: 01/24/18 06:27 Dose: 100 mls/hr Metronidazole (Flagyl) 500 mg in 100 mls @ 100 mls/hr IVPB Q8 [facility] PRN Reason: Protocol Last Admin: 01/24/18 05:23 Dose: 100 mls/hr Piperacillin Sod/Tazobactam (Sod 3.375 gm/ Sodium Chloride) 100 mls @ 200 mls/ hr IVPB Q8H [facility] PRN Reason: Protocol Last Admin: 01/24/18 05:23 Dose: 200 mls/hr Potassium Chloride (Potassium Chloride 20 Meq/100 Ml) 20 meq in 100 mls @ 50 mls/hr IVPB ONCE ONE Stop: 01/24/18 12:54 Ondansetron HCl (Zofran Inj) 4 mg IVP Q6 PRN PRN Reason: Nausea/Vomiting Pantoprazole Sodium (Protonix Inj) 40 mg IVP DAILY [facility] Last Admin: 01/24/18 10:24 Dose: 40 mg Timolol Maleate (Timoptic 0.5% Ophth Soln) 0 drop OU BID [facility] Last Admin: 01/24/18 10:23 Dose: Not Given Zolpidem Tartrate (Ambien) 5 mg NG HS [facility] Last Admin: 01/23/18 22:09 Dose: Not Given - Labs Labs: 01/24/18 08:51 01/24/18 08:51 PT 11.2 SECONDS (9.7-12.2) 01/23/18 06:30 INR 1.0 01/23/18 06:30 APTT 25 SECONDS (21-34) 01/23/18 06:30 - Additional Findings Additional findings: - Constitutional Appears: No Acute Distress - Head Exam Head Exam: ATRAUMATIC, NORMAL INSPECTION - Eye Exam Eye Exam: EOMI, Normal appearance - ENT Exam ENT Exam: Mucous Membranes Moist Additional comments: NG tube in place, output total 1100 - Respiratory Exam Respiratory Exam: Clear to Ausculation Bilateral, NORMAL BREATHING PATTERN - Cardiovascular Exam Cardiovascular Exam: REGULAR RHYTHM, +S1, +S2 - GI/Abdominal Exam GI & Abdominal Exam: Soft, Normal Bowel Sounds, Distended. absent: Tenderness - Rectal Exam Rectal Exam: NORMAL INSPECTION. absent: Black Stool, Bloody Stool, Hemorrhoids - Extremities Exam Extremities Exam: Normal Inspection. absent: Pedal Edema, Tenderness - Neurological Exam Neurological Exam: Alert, Awake, Oriented x3 - Psychiatric Exam Psychiatric exam: Normal Affect, Normal Mood - Skin Skin Exam: Normal Color Assessment and Plan - Assessment and Plan (Free Text) Plan: Small bowel obstruction - CT abd/pelvis: Acute small bowel obstruction. Transition point in mid-distal jejunum suggesting possible internal hernia. Small amount of pelvic and abdominal ascites. Small hiatal hernia. - EKG: NSR - NG tube placed in ED drained about 1100cc - Chest X-ray: NG tube extending into the stomach - Surgery, Dr. Sullivan consulted --> help appreciated - per surgery - exlap today - NPO - Started on IV fluids: D5/.045NS with 20 MeQ KCl - chest xray reviewed; no effusions or consolidations - GI Consult: Dr. Mariano --> help appreciated - per Dr. Mariano patient will have a colonoscopy as an outpatient Leukocytosis secondary to SBO - WBC 14.9 --> 12.9 - Medications * Metronidazole 500mg q8h * Zosyn 3.375gm q8h History of HTN - Will hold home medications toprol xl and benicar/HCTZ for now - Will hold Aspirin for now while pt is NPO History of Glaucoma - Continue home medication: Dorzolamide-Timolol ophthalmic 1 drop twice a day History of Insomnia - Will hold home medication, ambien Prophylaxis - SCDs, VTE c/i 2/2 OR - Protonix IV Case discussed with Dr. Paty Ahmadi PGY-1 <Naman Newman - Last Filed: 01/24/18 16:25> Objective - Vital Signs/Intake and Output Vital Signs (last 24 hours): Temp Pulse Resp BP Pulse Ox 97.8 F 57 L 10 L 115/61 100 01/24/18 14:33 01/24/18 16:00 01/24/18 16:00 01/24/18 16:00 01/24/18 16:00 Intake and Output: 01/24/18 01/24/18 06:59 18:59 Intake Total 1400 Output Total 700 275 Balance -700 1125 - Medications Medications: Current Medications Acetaminophen (Tylenol 325mg Tab) 650 mg PO Q6 PRN PRN Reason: Fever >100.4 F Dorzolamide HCl (Trusopt) 0 ml OU BID [facility] Last Admin: 01/24/18 10:23 Dose: Not Given Enoxaparin Sodium (Lovenox) 40 mg SC DAILY [facility] Hydromorphone HCl (Dilaudid) 0.5 mg IVP Q10M PRN PRN Reason: Pain, severe (8-10) Stop: 01/24/18 16:35 Last Admin: 01/24/18 15:20 Dose: 0.5 mg Hydromorphone HCl (Dilaudid) 1 mg IVP Q3H PRN PRN Reason: Pain, moderate (4-7) Metronidazole (Flagyl) 500 mg in 100 mls @ 100 mls/hr IVPB Q8 [facility] PRN Reason: Protocol Last Admin: 01/24/18 14:49 Dose: Not Given Piperacillin Sod/Tazobactam (Sod 3.375 gm/ Sodium Chloride) 100 mls @ 200 mls/ hr IVPB Q8H [facility] PRN Reason: Protocol Last Admin: 01/24/18 12:49 Dose: Not Given Potassium Chloride/Dextrose (Potassium Chl 20 Meq In D5w) 1,000 mls @ 100 mls/ hr IV .Q10H [facility] Lactated Ringer's (Lactated Ringer's) 1,000 mls @ 100 mls/hr IV .Q10H [facility] Ondansetron HCl (Zofran Inj) 4 mg IVP ONCE PRN PRN Reason: Nausea/Vomiting Stop: 01/24/18 16:35 Last Admin: 01/24/18 15:45 Dose: 4 mg Ondansetron HCl (Zofran Inj) 4 mg IVP Q4 PRN PRN Reason: Nausea/Vomiting Pantoprazole Sodium (Protonix Inj) 40 mg IVP DAILY [facility] Last Admin: 01/24/18 10:24 Dose: 40 mg Timolol Maleate (Timoptic 0.5% Ophth Soln) 0 drop OU BID [facility] Last Admin: 01/24/18 10:23 Dose: Not Given Zolpidem Tartrate (Ambien) 5 mg NG HS [facility] Last Admin: 01/23/18 22:09 Dose: Not Given - Labs Labs: 01/24/18 08:51 01/24/18 08:51 PT 11.2 SECONDS (9.7-12.2) 01/23/18 06:30 INR 1.0 01/23/18 06:30 APTT 25 SECONDS (21-34) 01/23/18 06:30 Attending/Attestation - Attestation I have personally seen and examined this patient.: Yes I have fully participated in the care of the patient.: Yes I have reviewed all pertinent clinical information, including history, physical exam and plan: Yes Notes (Text): 01/24/18 16:23 Medical attending: Patient was seen and examined by me. Agree with the above note by the resident The patient was not in any acute distress this morning. She still have the NGT and IVF The abdomen was soft and non-tender Later in the in the day the patient went to have laparoscopic lysis of adhesions Naman Newman
[2018-01-24] MEDS ORDERED: metroNIDAZOLE IV 500 mg/100 ml 500 MG/100 ML BAG ONE (12:41)
[2018-01-24] MEDS ORDERED: Piperacillin/Tazobact 3.375 gm 100 ML IVPB ONE (12:42)
--- NOTE | 2018-01-24 12:46 | CARD ---
APPROVED REPORT EKG Measurement Heart [id number] <Conclusion> Normal sinus rhythm Normal ECG
[2018-01-24] MEDS ORDERED: Propofol 10 mg/ml Inj (20 ML) ONE (12:50)
[2018-01-24] MEDS ORDERED: Midazolam 2 MG/2 ML VIAL ONE (12:50)
[2018-01-24] MEDS ORDERED: Rocuronium 10 mg/ml (5 ml) ONE (13:24)
[2018-01-24] MEDS ORDERED: Etomidate 20 mg/10ml Inj IV ONE (13:37)
[2018-01-24] MEDS ORDERED: Neostigmine Methylsulfate 3mg/3ml Syringe IV ONE (14:00)
--- NOTE | 2018-01-24 14:41 | PCM.SURG1 ---
Surgeon's Initial Post Op Note - Surgeon's Notes Surgeon: Dr. Sullivan Assistant Credit Manager: Dr. Inman PGY3 Dr. Florez PGY1 Type of Anesthesia: General Endo Pre-Operative Diagnosis: small bowel obstruction Operative Findings: small bowel mesenteric internal hernia Post-Operative Diagnosis: Small bowel obstruction Operation Performed: diagnostic laparoscopy, examination of entire small bowel, identification and reduction of small bowel internal hernia Specimen/Specimens Removed: none Estimated Blood Loss: EBL {In ML}: 0 Blood Products Given: N/A Drains Used: No Drains Post-Op Condition: Good Date of Surgery/Procedure: 01/24/18 Time of Surgery/Procedure: 14:41
[2018-01-24] MEDS ORDERED: HYDROmorphone 1 mg/ml ISec IVP PRN (14:42)
[2018-01-24] MEDS: HYDROmorphone 0.5 mg/0.5 ml ISec IVP PRN ×2 (14:48→15:20)
--- NOTE | 2018-01-24 15:56 | CP.PCM.PN ---
Subjective - Date & Time of Evaluation Date of Evaluation: 01/24/18 Time of Evaluation: 15:53 - Subjective Subjective: Patient is currently in PACU. She denies having nausea and vomiting. She has mild incisional pain. She has not had a bowel movement today. Objective - Vital Signs/Intake and Output Vital Signs (last 24 hours): Temp Pulse Resp BP Pulse Ox 97.8 F 60 13 105/54 L 98 01/24/18 14:33 01/24/18 15:15 01/24/18 15:15 01/24/18 15:15 01/24/18 15:15 Intake and Output: 01/24/18 01/24/18 06:59 18:59 Intake Total 1400 Output Total 700 275 Balance -700 1125 - Medications Medications: Current Medications Acetaminophen (Tylenol 325mg Tab) 650 mg PO Q6 PRN PRN Reason: Fever >100.4 F Dorzolamide HCl (Trusopt) 0 ml OU BID [facility] Last Admin: 01/24/18 10:23 Dose: Not Given Enoxaparin Sodium (Lovenox) 40 mg SC DAILY [facility] Hydromorphone HCl (Dilaudid) 0.5 mg IVP Q10M PRN PRN Reason: Pain, severe (8-10) Stop: 01/24/18 16:35 Last Admin: 01/24/18 15:20 Dose: 0.5 mg Hydromorphone HCl (Dilaudid) 1 mg IVP Q3H PRN PRN Reason: Pain, moderate (4-7) Metronidazole (Flagyl) 500 mg in 100 mls @ 100 mls/hr IVPB Q8 [facility] PRN Reason: Protocol Last Admin: 01/24/18 14:49 Dose: Not Given Piperacillin Sod/Tazobactam (Sod 3.375 gm/ Sodium Chloride) 100 mls @ 200 mls/ hr IVPB Q8H [facility] PRN Reason: Protocol Last Admin: 01/24/18 12:49 Dose: Not Given Potassium Chloride/Dextrose (Potassium Chl 20 Meq In D5w) 1,000 mls @ 100 mls/ hr IV .Q10H [facility] Lactated Ringer's (Lactated Ringer's) 1,000 mls @ 100 mls/hr IV .Q10H [facility] Ondansetron HCl (Zofran Inj) 4 mg IVP ONCE PRN PRN Reason: Nausea/Vomiting Stop: 01/24/18 16:35 Last Admin: 01/24/18 15:45 Dose: 4 mg Ondansetron HCl (Zofran Inj) 4 mg IVP Q4 PRN PRN Reason: Nausea/Vomiting Pantoprazole Sodium (Protonix Inj) 40 mg IVP DAILY [facility] Last Admin: 01/24/18 10:24 Dose: 40 mg Timolol Maleate (Timoptic 0.5% Ophth Soln) 0 drop OU BID [facility] Last Admin: 01/24/18 10:23 Dose: Not Given Zolpidem Tartrate (Ambien) 5 mg NG HS [facility] Last Admin: 01/23/18 22:09 Dose: Not Given - Labs Labs: 01/24/18 08:51 01/24/18 08:51 PT 11.2 SECONDS (9.7-12.2) 01/23/18 06:30 INR 1.0 01/23/18 06:30 APTT 25 SECONDS (21-34) 01/23/18 06:30 - Constitutional Appears: No Acute Distress - Head Exam Head Exam: ATRAUMATIC, NORMOCEPHALIC - Eye Exam Eye Exam: EOMI, PERRL - Neck Exam Neck Exam: absent: Lymphadenopathy, Thyromegaly - Respiratory Exam Respiratory Exam: NORMAL BREATHING PATTERN. absent: Rales, Rhonchi, Wheezes - Cardiovascular Exam Cardiovascular Exam: REGULAR RHYTHM, +S1, +S2. absent: Gallop, Rubs, Murmur - GI/Abdominal Exam GI & Abdominal Exam: Soft, Tenderness, Normal Bowel Sounds. absent: Mass, Organomegaly Additional comments: Mild tenderness at incisions - Rectal Exam Rectal Exam: Deferred - Extremities Exam Extremities Exam: absent: Calf Tenderness, Pedal Edema Assessment and Plan (1) Small bowel obstruction Assessment & Plan: Patient had repair of an internal hernia today. Recommend office follow up following discharge to schedule colonoscopy. Status: Acute
[2018-01-24] MEDS: Lactated Ringer's 1,000 ML IV SCH (17:00)
--- NOTE | 2018-01-25 00:06 | OP ---
PROCEDURE DATE: 01/24/2018 PREOPERATIVE DIAGNOSIS: Small bowel obstruction. POSTOPERATIVE DIAGNOSIS: Small bowel obstruction. PROCEDURE: Exploratory laparoscopy and lysis of adhesion. SURGEON: Yousif Sullivan Jr., MD [place] ATTACHER: Dr. shanice Florez. ANESTHESIOLOGIST: Mr. Moe. INDICATIONS: The patient is a 77-year-old woman with a history of abdominal pain and presented with abdominal obstruction. Imaging studies did not show any progression of contrast and the patient remained obstructed. OPERATIVE FINDINGS: General abdominal laparoscopy was unremarkable. There were no notable adhesions throughout the abdomen to the anterior abdominal wall etc. Initially, identified the decompressed segment of the small bowel distally followed to the cecum and then went retrograde up the other end. There reached a point where it was clarified that there was a point of obstruction and adhesive band across this. We then continuing to reduce this, we were able to reduce the bowel completely through the adhesive band. However, we were unable to lyse the band itself or cut the band itself that was responsible for it. Nonetheless, at this point the bowel was completely free and we followed it back to the ligament of Treitz without any additional findings and then went through the small bowel again, which had been completely freed. We then closed the puncture sites. We have had placed three puncture sites, a 12 in the midline in the lower abdominal wall and two 5 mm ports on both sides of the midline. After this, we suctioned out any additional fluid. There was no bowel injury. There was no bowel infarction. This was simply a loop of bowel that was trapped between the adhesions which we were able to reduce. Yousif Sullivan Jr., MD cc: MTDD
[2018-01-25] MEDS: Lactated Ringer's 1,000 ML IV SCH ×3 (00:45→12:19)
[2018-01-25] MEDS: metroNIDAZOLE IV 500 mg/100 ml 500 MG/100 ML BAG IVPB SCH ×3 (05:06→22:20)
[2018-01-25] MEDS: Piperacillin/Tazobact 3.375 GM in Sodium Chloride 100 ML IVPB SCH ×2 (05:07→13:48)
[2018-01-25 07:04] LABS: BASO % 0.3 % (0.0-2.0); EOS % 0.2 % (0.0-4.0); HEMOGLOBIN 11.9 g/dL (11.0-16.0); LYMPH # 1.7 K/uL (1.0-4.3); LYMPH % 13.4 % (20.0-40.0); MEAN CELL VOLUME 94.9 fL (81.0-99.0); MEAN CORPUSCULAR HEMOGLOBIN 32.7 pg (27.0-31.0); MEAN CORPUSCULAR HGB CONC 34.4 g/dL (33.0-37.0); MEAN PLATELET VOLUME 7.3 fL (7.2-11.7); MONO # 0.8 K/uL (0.0-0.8); MONO % 6.2 % (0.0-10.0); NEUT # 10.1 K/uL (1.8-7.0); NEUT % 79.9 % (50.0-75.0); RBC 3.64 Mil/uL (3.80-5.20); RED CELL DISTRIBUTION WIDTH 13.4 % (11.5-14.5); WHITE BLOOD COUNT 12.6 K/uL (4.8-10.8)
[2018-01-25 07:24] LABS: ALB/GLOB RATIO 1.1 (1.0-2.1); ALBUMIN 2.9 g/dL (3.5-5.0); ALT/SGPT 24 U/L (9-52); AST/SGOT 16 U/L (14-36); BLOOD UREA NITROGEN 13 mg/dL (7-17); CALCIUM 8.5 mg/dl (8.6-10.4); GFR AFRICAN-AMERICAN > 60; GFR NON-AFRICAN AMERICAN > 60
--- NOTE | 2018-01-25 07:25 | CP.PCM.PN ---
Subjective - Date & Time of Evaluation Date of Evaluation: 01/25/18 Time of Evaluation: 07:23 - Subjective Subjective: Surgery: Dr. Sullivan Patient reports feeling ok this am. She complains of not being able to sleep. She denies n/v. She denies flatus or BM but states she feels as if she might could attempt bowel movement. Per nursing reports NGT put out scan whitish drainage throughout the night even with flushing tube. Objective - Vital Signs/Intake and Output Vital Signs (last 24 hours): Temp Pulse Resp BP Pulse Ox 98.2 F 74 20 122/63 96 01/25/18 04:50 01/25/18 04:50 01/25/18 04:50 01/25/18 04:50 01/25/18 04:50 Intake and Output: 01/25/18 01/25/18 06:59 18:59 Intake Total 200 Output Total 900 Balance -700 - Medications Medications: Current Medications Acetaminophen (Tylenol 325mg Tab) 650 mg PO Q6 PRN PRN Reason: Fever >100.4 F Dorzolamide HCl (Trusopt) 0 ml OU BID [facility] Last Admin: 01/24/18 18:27 Dose: Not Given Enoxaparin Sodium (Lovenox) 40 mg SC DAILY [facility] Hydromorphone HCl (Dilaudid) 1 mg IVP Q3H PRN PRN Reason: Pain, moderate (4-7) Metronidazole (Flagyl) 500 mg in 100 mls @ 100 mls/hr IVPB Q8 [facility] PRN Reason: Protocol Last Admin: 01/25/18 05:06 Dose: 100 mls/hr Piperacillin Sod/Tazobactam (Sod 3.375 gm/ Sodium Chloride) 100 mls @ 200 mls/ hr IVPB Q8H [facility] PRN Reason: Protocol Last Admin: 01/25/18 05:07 Dose: 200 mls/hr Potassium Chloride/Dextrose (Potassium Chl 20 Meq In D5w) 1,000 mls @ 100 mls/ hr IV .Q10H [facility] Lactated Ringer's (Lactated Ringer's) 1,000 mls @ 100 mls/hr IV .Q10H [facility] Last Admin: 01/25/18 05:08 Dose: 100 mls/hr Ondansetron HCl (Zofran Inj) 4 mg IVP Q4 PRN PRN Reason: Nausea/Vomiting Last Admin: 01/24/18 18:23 Dose: 4 mg Pantoprazole Sodium (Protonix Inj) 40 mg IVP DAILY [facility] Last Admin: 01/24/18 10:24 Dose: 40 mg Timolol Maleate (Timoptic 0.5% Ophth Soln) 0 drop OU BID [facility] Last Admin: 01/24/18 18:27 Dose: Not Given Zolpidem Tartrate (Ambien) 5 mg NG HS [facility] Last Admin: 01/24/18 22:08 Dose: Not Given - Labs Labs: 01/25/18 07:01 01/24/18 08:51 PT 11.2 SECONDS (9.7-12.2) 01/23/18 06:30 INR 1.0 01/23/18 06:30 APTT 25 SECONDS (21-34) 01/23/18 06:30 - Constitutional Appears: Non-toxic, No Acute Distress - Head Exam Head Exam: ATRAUMATIC, NORMOCEPHALIC - Eye Exam Eye Exam: EOMI, Normal appearance - ENT Exam ENT Exam: Mucous Membranes Dry - Respiratory Exam Respiratory Exam: NORMAL BREATHING PATTERN. absent: Respiratory Distress - Cardiovascular Exam Cardiovascular Exam: REGULAR RHYTHM. absent: Tachycardia - GI/Abdominal Exam GI & Abdominal Exam: Soft. absent: Distended, Tenderness, Rebound Additional comments: dressing CDI - Neurological Exam Neurological Exam: Alert, Awake - Psychiatric Exam Psychiatric exam: Normal Affect, Normal Mood Assessment and Plan - Assessment and Plan (Free Text) Assessment: 77 y/o female w/ SBO s/p diagnostic laparoscopy w/ reduction of internal hernia POD1 Plan: -d/c yanez -ok to be OOB -monitor for bowel function -NGT to LCWS while in bed, can clamp while ambulating -once bowel function returns can remove NGT and start CLD -ok for po meds, clamp NGT for 30 min after administering -IS use -ok for DVT ppx -lab saturday -further recs per Dr. Nate Barros PGY3
[2018-01-25] MEDS ORDERED: Phenol Topical 1.4% Throat Spray (180 ml) MT PRN (07:27)
--- NOTE | 2018-01-25 09:21 | CP.PCM.PN ---
Subjective - Date & Time of Evaluation Date of Evaluation: 01/25/18 Time of Evaluation: 09:05 - Subjective Subjective: Patient was seen and examined Patient is POD 1 of laparoscopy and reduction of small bowel internal hernia She was doing well she said besides difficulty with sleeping. Denied chest pain , denied shortness of breath Some tenderness left lower quadrant - otherwise ok she says. Later today yanez will be DC Encouraged ambulation Objective - Vital Signs/Intake and Output Vital Signs (last 24 hours): Temp Pulse Resp BP Pulse Ox 98.2 F 74 18 118/68 96 01/25/18 07:00 01/25/18 07:00 01/25/18 07:00 01/25/18 07:00 01/25/18 07:00 Intake and Output: 01/25/18 01/25/18 06:59 18:59 Intake Total 200 800 Output Total 900 0 Balance -700 800 - Medications Medications: Current Medications Acetaminophen (Tylenol 325mg Tab) 650 mg PO Q6 PRN PRN Reason: Fever >100.4 F Benzocaine/Menthol (Cepacol Sore Throat) 1 shaw MT Q2 PRN PRN Reason: Sore Throat Dorzolamide HCl (Trusopt) 0 ml OU BID [facility] Last Admin: 01/24/18 18:27 Dose: Not Given Enoxaparin Sodium (Lovenox) 40 mg SC DAILY [facility] Hydromorphone HCl (Dilaudid) 1 mg IVP Q3H PRN PRN Reason: Pain, moderate (4-7) Metronidazole (Flagyl) 500 mg in 100 mls @ 100 mls/hr IVPB Q8 [facility] PRN Reason: Protocol Last Admin: 01/25/18 05:06 Dose: 100 mls/hr Piperacillin Sod/Tazobactam (Sod 3.375 gm/ Sodium Chloride) 100 mls @ 200 mls/ hr IVPB Q8H [facility] PRN Reason: Protocol Last Admin: 01/25/18 05:07 Dose: 200 mls/hr Potassium Chloride/Dextrose (Potassium Chl 20 Meq In D5w) 1,000 mls @ 100 mls/ hr IV .Q10H [facility] Lactated Ringer's (Lactated Ringer's) 1,000 mls @ 100 mls/hr IV .Q10H [facility] Last Admin: 01/25/18 05:08 Dose: 100 mls/hr Ondansetron HCl (Zofran Inj) 4 mg IVP Q4 PRN PRN Reason: Nausea/Vomiting Last Admin: 01/24/18 18:23 Dose: 4 mg Pantoprazole Sodium (Protonix Inj) 40 mg IVP DAILY [facility] Last Admin: 01/24/18 10:24 Dose: 40 mg Phenol/Menthol (Phenaseptic 1.4% Throat [place]) 0 ml MT Q4 PRN PRN Reason: Sore Throat Timolol Maleate (Timoptic 0.5% Ophth Soln) 0 drop OU BID [facility] Last Admin: 01/24/18 18:27 Dose: Not Given Zolpidem Tartrate (Ambien) 5 mg NG HS [facility] Last Admin: 01/24/18 22:08 Dose: Not Given - Labs Labs: 01/25/18 07:01 01/25/18 07:01 PT 11.2 SECONDS (9.7-12.2) 01/23/18 06:30 INR 1.0 01/23/18 06:30 APTT 25 SECONDS (21-34) 01/23/18 06:30 - Constitutional Appears: No Acute Distress - Head Exam Head Exam: NORMAL INSPECTION, NORMOCEPHALIC - Eye Exam Eye Exam: EOMI, Normal appearance - ENT Exam ENT Exam: Mucous Membranes Moist - Respiratory Exam Respiratory Exam: Clear to Ausculation Bilateral, NORMAL BREATHING PATTERN - Cardiovascular Exam Cardiovascular Exam: REGULAR RHYTHM - GI/Abdominal Exam GI & Abdominal Exam: Soft, Tenderness. absent: Distended, Firm, Guarding, Rigid Additional comments: S/P lasparcopy. No bleeding, clean, dry - Neurological Exam Neurological Exam: Alert, Awake, Oriented x3 Neuro motor strength exam: Left Upper Extremity: 5, Right Upper Extremity: 5, Left Lower Extremity: 5, Right Lower Extremity: 5 - Psychiatric Exam Psychiatric exam: Normal Affect, Normal Mood - Skin Skin Exam: Normal Color, Warm Assessment and Plan - Assessment and Plan (Free Text) Assessment: Small bowel obstruction 01/25: Patient is S/P POD1 laparoscopy and reduction of small bowel internal hernia. Later today stop the yanez cather/ Encourage ambulation. - CT abd/pelvis: Acute small bowel obstruction. Transition point in mid-distal jejunum suggesting possible internal hernia. Small amount of pelvic and abdominal ascites. Small hiatal hernia. - NG tube placed in ED - Chest X-ray: NG tube extending into the stomach - Surgery, Dr. Sullivan consulted --> help appreciated - NPO - Started on IV fluids: D5/.045NS with 20 MeQ KCl - chest xray reviewed; no effusions or consolidations - GI Consult: Dr. Mariano --> help appreciated - per Dr. Mariano patient will have a colonoscopy as an outpatient Leukocytosis 01/25: Conintue to monitor, she has not had fever. Maybe able to stop abx soon secondary to SBO * Metronidazole 500mg q8h * Zosyn 3.375gm q8h History of HTN 01/25: Currently stable at this time. - Will hold home medications toprol xl and benicar/HCTZ for now - Will hold Aspirin for now while pt is NPO History of Glaucoma - Continue home medication: Dorzolamide-Timolol ophthalmic 1 drop twice a day History of Insomnia - Will hold home medication, ambien Prophylaxis - SCDs, VTE c/i 2/2 OR - Protonix IV
[2018-01-25] MEDS: Enoxaparin 40 mg Syringe SC SCH (10:15)
[2018-01-25] MEDS: Potassium Ch 20mEq in D5W 1,000 ML IV SCH ×2 (10:24→19:45)
[2018-01-25] MEDS: Dorzolamide 2% Opht Sol 10ml OU SCH ×2 (10:24→19:46)
[2018-01-25] MEDS: Benzocaine/Menthol (Cepacol) Lozenge MT PRN (10:26)
--- NOTE | 2018-01-25 10:38 | CP.PCM.PN ---
Subjective - Date & Time of Evaluation Date of Evaluation: 01/25/18 Time of Evaluation: 10:36 - Subjective Subjective: F/U SBO Covering Dr Mckay S/P surg- hernia repair. No BM Denies RB, melena, fever, chills, CP,SOB, SZ Objective - Vital Signs/Intake and Output Vital Signs (last 24 hours): Temp Pulse Resp BP Pulse Ox 98.2 F 74 18 118/68 96 01/25/18 07:00 01/25/18 07:00 01/25/18 07:00 01/25/18 07:00 01/25/18 07:00 Intake and Output: 01/25/18 01/25/18 06:59 18:59 Intake Total 200 800 Output Total 900 0 Balance -700 800 - Medications Medications: Current Medications Acetaminophen (Tylenol 325mg Tab) 650 mg PO Q6 PRN PRN Reason: Fever >100.4 F Benzocaine/Menthol (Cepacol Sore Throat) 1 shaw MT Q2 PRN PRN Reason: Sore Throat Dorzolamide HCl (Trusopt) 0 ml OU BID [facility] Last Admin: 01/25/18 10:24 Dose: Not Given Enoxaparin Sodium (Lovenox) 40 mg SC DAILY [facility] Last Admin: 01/25/18 10:15 Dose: 40 mg Hydromorphone HCl (Dilaudid) 1 mg IVP Q3H PRN PRN Reason: Pain, moderate (4-7) Metronidazole (Flagyl) 500 mg in 100 mls @ 100 mls/hr IVPB Q8 [facility] PRN Reason: Protocol Last Admin: 01/25/18 05:06 Dose: 100 mls/hr Piperacillin Sod/Tazobactam (Sod 3.375 gm/ Sodium Chloride) 100 mls @ 200 mls/ hr IVPB Q8H [facility] PRN Reason: Protocol Last Admin: 01/25/18 05:07 Dose: 200 mls/hr Potassium Chloride/Dextrose (Potassium Chl 20 Meq In D5w) 1,000 mls @ 100 mls/ hr IV .Q10H [facility] Last Admin: 01/25/18 10:24 Dose: 100 mls/hr Lactated Ringer's (Lactated Ringer's) 1,000 mls @ 100 mls/hr IV .Q10H [facility] Last Admin: 01/25/18 05:08 Dose: 100 mls/hr Ondansetron HCl (Zofran Inj) 4 mg IVP Q4 PRN PRN Reason: Nausea/Vomiting Last Admin: 01/24/18 18:23 Dose: 4 mg Pantoprazole Sodium (Protonix Inj) 40 mg IVP DAILY [facility] Last Admin: 01/25/18 10:15 Dose: 40 mg Phenol/Menthol (Phenaseptic 1.4% Throat [place]) 0 ml MT Q4 PRN PRN Reason: Sore Throat Timolol Maleate (Timoptic 0.5% Ophth Soln) 0 drop OU BID [facility] Last Admin: 01/25/18 10:24 Dose: Not Given Zolpidem Tartrate (Ambien) 5 mg NG HS [facility] Last Admin: 01/24/18 22:08 Dose: Not Given - Labs Labs: 01/25/18 07:01 01/25/18 07:01 PT 11.2 SECONDS (9.7-12.2) 01/23/18 06:30 INR 1.0 01/23/18 06:30 APTT 25 SECONDS (21-34) 01/23/18 06:30 - Constitutional Appears: Well - ENT Exam Additional comments: NG tube - Respiratory Exam Respiratory Exam: Clear to Ausculation Bilateral - GI/Abdominal Exam GI & Abdominal Exam: Tenderness, Hypoactive Bowel Sounds. absent: Normal Bowel Sounds - Extremities Exam Extremities Exam: absent: Pedal Edema - Neurological Exam Neurological Exam: Alert, Oriented x3 Assessment and Plan (1) Hernia of small intestine Status: Acute (2) HTN (hypertension) Status: Acute (3) UTI (urinary tract infection) Status: Acute (4) Small bowel obstruction Assessment & Plan: hernia SB,. S/P surg. No BMs yet. NG in place. Status: Acute (5) Vomiting Status: Acute
[2018-01-25] MEDS: Piperacill/Tazo 3.375gm in Dex 3.375 GM/50 ML BAG IVPB SCH (21:00)
[2018-01-26] MEDS ORDERED: HYDROmorphone 1 mg/ml ISec IVP PRN (02:06)
[2018-01-26] MEDS ORDERED: Morphine 4 MG/ML VIAL IV PRN (02:07)
[2018-01-26] MEDS: Potassium Ch 20mEq in D5W 1,000 ML IV SCH ×2 (02:09→04:28)
[2018-01-26] MEDS: Piperacill/Tazo 3.375gm in Dex 3.375 GM/50 ML BAG IVPB SCH ×2 (03:17→12:23)
[2018-01-26] MEDS: metroNIDAZOLE IV 500 mg/100 ml 500 MG/100 ML BAG IVPB SCH ×2 (05:47→13:27)
[2018-01-26] MEDS: Benzocaine/Menthol (Cepacol) Lozenge MT PRN (06:10)
--- NOTE | 2018-01-26 06:19 | CP.PCM.PN ---
Subjective - Date & Time of Evaluation Date of Evaluation: 01/26/18 Time of Evaluation: 06:00 - Subjective Subjective: Surgery- Dr. Sullivan Patient seen and examined at bedside. No acute events overnight. Passed flatus and multiple BM. tolerating FLD. Pain controlled on current regiment. appropriately tender around incision site. +OOB to chair Denies nausea, vomiting , chest pain, shortness of breath. Objective - Vital Signs/Intake and Output Vital Signs (last 24 hours): Temp Pulse Resp BP Pulse Ox 98.1 F 76 20 112/67 95 01/26/18 06:06 01/26/18 06:06 01/26/18 06:06 01/26/18 06:06 01/26/18 06:06 Intake and Output: 01/25/18 01/26/18 18:59 06:59 Intake Total 1960 1175 Output Total 110 575 Balance 1850 600 - Medications Medications: Current Medications Acetaminophen (Tylenol 325mg Tab) 650 mg PO Q6 PRN PRN Reason: Fever >100.4 F Last Admin: 01/26/18 02:09 Dose: 650 mg Acetaminophen (Tylenol 325mg Tab) 650 mg PO Q6 PRN PRN Reason: Pain, moderate (4-7) Benzocaine/Menthol (Cepacol Sore Throat) 1 shaw MT Q2 PRN PRN Reason: Sore Throat Last Admin: 01/26/18 06:10 Dose: 1 shaw Dorzolamide HCl (Trusopt) 0 ml OU BID [facility] Last Admin: 01/25/18 19:46 Dose: Not Given Enoxaparin Sodium (Lovenox) 40 mg SC DAILY [facility] Last Admin: 01/25/18 10:15 Dose: 40 mg Metronidazole (Flagyl) 500 mg in 100 mls @ 100 mls/hr IVPB Q8 [facility] PRN Reason: Protocol Last Admin: 01/26/18 05:47 Dose: 100 mls/hr Potassium Chloride/Dextrose (Potassium Chl 20 Meq In D5w) 1,000 mls @ 100 mls/ hr IV .Q10H [facility] Last Admin: 01/26/18 04:28 Dose: Not Given Lactated Ringer's (Lactated Ringer's) 1,000 mls @ 100 mls/hr IV .Q10H [facility] Last Admin: 01/25/18 12:19 Dose: Not Given Piperacillin Sod/Tazobactam Sod (Zosyn 3.375 Gm Iv Premix) 3.375 gm in 50 mls @ 200 mls/hr IVPB Q8H [facility] PRN Reason: Protocol Last Admin: 01/26/18 03:17 Dose: 200 mls/hr Morphine Sulfate (Morphine) 1 mg IV Q4 PRN PRN Reason: Pain, severe (8-10) Ondansetron HCl (Zofran Inj) 4 mg IVP Q4 PRN PRN Reason: Nausea/Vomiting Last Admin: 01/24/18 18:23 Dose: 4 mg Pantoprazole Sodium (Protonix Inj) 40 mg IVP DAILY [facility] Last Admin: 01/25/18 10:15 Dose: 40 mg Phenol/Menthol (Phenaseptic 1.4% Throat [place]) 0 ml MT Q4 PRN PRN Reason: Sore Throat Timolol Maleate (Timoptic 0.5% Ophth Soln) 0 drop OU BID [facility] Last Admin: 01/25/18 19:45 Dose: Not Given Zolpidem Tartrate (Ambien) 5 mg NG HS [facility] Last Admin: 01/25/18 22:19 Dose: Not Given - Labs Labs: 01/25/18 07:01 01/25/18 07:01 PT 11.2 SECONDS (9.7-12.2) 01/23/18 06:30 INR 1.0 01/23/18 06:30 APTT 25 SECONDS (21-34) 01/23/18 06:30 - Constitutional Appears: Non-toxic, No Acute Distress - Head Exam Head Exam: ATRAUMATIC - Eye Exam Eye Exam: EOMI - ENT Exam ENT Exam: Mucous Membranes Moist - Respiratory Exam Respiratory Exam: NORMAL BREATHING PATTERN. absent: Accessory Muscle Use, Respiratory Distress - Cardiovascular Exam Cardiovascular Exam: +S1, +S2. absent: Bradycardia, Tachycardia - GI/Abdominal Exam GI & Abdominal Exam: Guarding (voluntary guarding), Soft, Tenderness ( appropatiely tender around incision site). absent: Distended - Extremities Exam Extremities Exam: Normal Inspection. absent: Calf Tenderness - Neurological Exam Neurological Exam: Alert, Awake, Oriented x3 - Psychiatric Exam Psychiatric exam: Normal Affect - Skin Skin Exam: Intact, Warm Assessment and Plan - Assessment and Plan (Free Text) Assessment: 77 y/o female w/ SBO s/p diagnostic laparoscopy w/ reduction of internal hernia POD1 Plan: - advance diet as tolerated - encourage OOB and IC use - DVT ppx - further recs per Dr. Sullivan surgical attending PGY1
[2018-01-26 07:38] LABS: BASO % 0.3 % (0.0-2.0); EOS # 0.2 K/uL (0.0-0.7); EOS % 1.7 % (0.0-4.0); HEMOGLOBIN 11.5 g/dL (11.0-16.0); LYMPH # 1.7 K/uL (1.0-4.3); LYMPH % 12.8 % (20.0-40.0); MEAN CELL VOLUME 94.9 fL (81.0-99.0); MEAN CORPUSCULAR HEMOGLOBIN 33.2 pg (27.0-31.0); MEAN PLATELET VOLUME 7.6 fL (7.2-11.7); MONO # 1.2 K/uL (0.0-0.8); MONO % 9.1 % (0.0-10.0); NEUT % 76.1 % (50.0-75.0); RBC 3.48 Mil/uL (3.80-5.20); RED CELL DISTRIBUTION WIDTH 13.4 % (11.5-14.5); WHITE BLOOD COUNT 13.2 K/uL (4.8-10.8)
--- NOTE | 2018-01-26 07:53 | CP.PCM.PN ---
Subjective - Date & Time of Evaluation Date of Evaluation: 01/26/18 Time of Evaluation: 08:00 - Subjective Subjective: PGY 2 medicine progress note for Dr. Newman: Patient was seen and examined at bedside this morning She is POD 2 of laparoscopy and reduction of small bowel internal hernia. NG tube and yanez were removed yesterday. She is tolerating diet. Had a normal BM yesterday. Admits to mild tenderness in the left lower quadrant. Denied chest pain, denied shortness of breath, N/V. Objective - Vital Signs/Intake and Output Vital Signs (last 24 hours): Temp Pulse Resp BP Pulse Ox 98.1 F 76 20 112/67 95 01/26/18 06:06 01/26/18 06:06 01/26/18 06:06 01/26/18 06:06 01/26/18 06:06 Intake and Output: 01/26/18 01/26/18 06:59 18:59 Intake Total 2225 Output Total 575 Balance 1650 - Medications Medications: Current Medications Acetaminophen (Tylenol 325mg Tab) 650 mg PO Q6 PRN PRN Reason: Fever >100.4 F Last Admin: 01/26/18 02:09 Dose: 650 mg Acetaminophen (Tylenol 325mg Tab) 650 mg PO Q6 PRN PRN Reason: Pain, moderate (4-7) Benzocaine/Menthol (Cepacol Sore Throat) 1 shaw MT Q2 PRN PRN Reason: Sore Throat Last Admin: 01/26/18 06:10 Dose: 1 shaw Dorzolamide HCl (Trusopt) 0 ml OU BID [facility] Last Admin: 01/25/18 19:46 Dose: Not Given Enoxaparin Sodium (Lovenox) 40 mg SC DAILY [facility] Last Admin: 01/25/18 10:15 Dose: 40 mg Metronidazole (Flagyl) 500 mg in 100 mls @ 100 mls/hr IVPB Q8 [facility] PRN Reason: Protocol Last Admin: 01/26/18 05:47 Dose: 100 mls/hr Potassium Chloride/Dextrose (Potassium Chl 20 Meq In D5w) 1,000 mls @ 100 mls/ hr IV .Q10H [facility] Last Admin: 01/26/18 04:28 Dose: Not Given Lactated Ringer's (Lactated Ringer's) 1,000 mls @ 100 mls/hr IV .Q10H [facility] Last Admin: 01/25/18 12:19 Dose: Not Given Piperacillin Sod/Tazobactam Sod (Zosyn 3.375 Gm Iv Premix) 3.375 gm in 50 mls @ 200 mls/hr IVPB Q8H [facility] PRN Reason: Protocol Last Admin: 01/26/18 03:17 Dose: 200 mls/hr Morphine Sulfate (Morphine) 1 mg IV Q4 PRN PRN Reason: Pain, severe (8-10) Ondansetron HCl (Zofran Inj) 4 mg IVP Q4 PRN PRN Reason: Nausea/Vomiting Last Admin: 01/24/18 18:23 Dose: 4 mg Pantoprazole Sodium (Protonix Inj) 40 mg IVP DAILY [facility] Last Admin: 01/25/18 10:15 Dose: 40 mg Phenol/Menthol (Phenaseptic 1.4% Throat [place]) 0 ml MT Q4 PRN PRN Reason: Sore Throat Timolol Maleate (Timoptic 0.5% Ophth Soln) 0 drop OU BID [facility] Last Admin: 01/25/18 19:45 Dose: Not Given Zolpidem Tartrate (Ambien) 5 mg NG HS [facility] Last Admin: 01/25/18 22:19 Dose: Not Given - Labs Labs: 01/26/18 07:30 01/25/18 07:01 PT 11.2 SECONDS (9.7-12.2) 01/23/18 06:30 INR 1.0 01/23/18 06:30 APTT 25 SECONDS (21-34) 01/23/18 06:30 - Constitutional Appears: Non-toxic, No Acute Distress - Head Exam Head Exam: ATRAUMATIC, NORMAL INSPECTION - Eye Exam Eye Exam: EOMI - ENT Exam ENT Exam: Mucous Membranes Moist - Respiratory Exam Respiratory Exam: Clear to Ausculation Bilateral, NORMAL BREATHING PATTERN - Cardiovascular Exam Cardiovascular Exam: REGULAR RHYTHM, +S1, +S2 - GI/Abdominal Exam GI & Abdominal Exam: Soft, Tenderness, Hypoactive Bowel Sounds. absent: Distended, Firm, Guarding Additional comments: S/P laproscopy No bleeding, incision clean, dry, intact - Extremities Exam Extremities Exam: Normal Inspection - Back Exam Back Exam: NORMAL INSPECTION - Neurological Exam Neurological Exam: Alert, Awake, CN II-XII Intact, Oriented x3 - Psychiatric Exam Psychiatric exam: Normal Affect, Normal Mood Assessment and Plan - Assessment and Plan (Free Text) Assessment: S/P POD2 laparoscopy and reduction of small bowel internal hernia, lysis of adhesions - CT abd/pelvis: Acute small bowel obstruction. Transition point in mid-distal jejunum suggesting possible internal hernia. Small amount of pelvic and abdominal ascites. Small hiatal hernia. - NG tube was in place and was removed 01/25 - Surgery, Dr. Sullivan consulted --> help appreciated - Was NPO and now has advanced to regular diet, tolerating - Fluids: LAR at 100cc/hour - GI Consult: Dr. Mariano --> help appreciated - per Dr. Mariano patient will have a colonoscopy as an outpatient Leukocytosis Afebrile WBC 13.2 Urine culture 02/22 - negative Secondary to SBO * Metronidazole 500mg q8h * Zosyn 3.375gm q8h History of HTN Patient's BP has been controlled off of home BP meds Toprol xl and benicar/HCTZ were held due to NPO status History of Glaucoma Continue home medication: Dorzolamide-Timolol ophthalmic 1 drop twice a day History of Insomnia Ambien 5mg PO HS prn Prophylaxis SCDs Lovenox 40mg Sc daily Protonix 40 mg IV daily Zofran prn
[2018-01-26] MEDS: Enoxaparin 40 mg Syringe SC SCH (09:39)
--- NOTE | 2018-01-26 10:08 | CP.PCM.PN ---
Subjective - Date & Time of Evaluation Date of Evaluation: 01/26/18 Time of Evaluation: 09:40 - Subjective Subjective: F/u vomiting, obstruction. Covering Dr Mariano Reports feeling better. NG t removed. Eating. Denies RB, melena, fever, chills, SZ, LOC, LU cough, hematuria, hemoptysis Objective - Vital Signs/Intake and Output Vital Signs (last 24 hours): Temp Pulse Resp BP Pulse Ox 98.5 F 77 20 103/69 96 01/26/18 08:53 01/26/18 08:53 01/26/18 08:53 01/26/18 08:53 01/26/18 08:53 Intake and Output: 01/26/18 01/26/18 06:59 18:59 Intake Total 2225 Output Total 575 Balance 1650 - Medications Medications: Current Medications Acetaminophen (Tylenol 325mg Tab) 650 mg PO Q6 PRN PRN Reason: Fever >100.4 F Last Admin: 01/26/18 02:09 Dose: 650 mg Acetaminophen (Tylenol 325mg Tab) 650 mg PO Q6 PRN PRN Reason: Pain, moderate (4-7) Benzocaine/Menthol (Cepacol Sore Throat) 1 shaw MT Q2 PRN PRN Reason: Sore Throat Last Admin: 01/26/18 06:10 Dose: 1 shaw Dorzolamide HCl (Trusopt) 0 ml OU BID [facility] Last Admin: 01/25/18 19:46 Dose: Not Given Enoxaparin Sodium (Lovenox) 40 mg SC DAILY [facility] Last Admin: 01/26/18 09:39 Dose: 40 mg Metronidazole (Flagyl) 500 mg in 100 mls @ 100 mls/hr IVPB Q8 [facility] PRN Reason: Protocol Last Admin: 01/26/18 05:47 Dose: 100 mls/hr Potassium Chloride/Dextrose (Potassium Chl 20 Meq In D5w) 1,000 mls @ 100 mls/ hr IV .Q10H [facility] Last Admin: 01/26/18 04:28 Dose: Not Given Lactated Ringer's (Lactated Ringer's) 1,000 mls @ 100 mls/hr IV .Q10H [facility] Last Admin: 01/25/18 12:19 Dose: Not Given Piperacillin Sod/Tazobactam Sod (Zosyn 3.375 Gm Iv Premix) 3.375 gm in 50 mls @ 200 mls/hr IVPB Q8H [facility] PRN Reason: Protocol Last Admin: 01/26/18 03:17 Dose: 200 mls/hr Morphine Sulfate (Morphine) 1 mg IV Q4 PRN PRN Reason: Pain, severe (8-10) Ondansetron HCl (Zofran Inj) 4 mg IVP Q4 PRN PRN Reason: Nausea/Vomiting Last Admin: 01/24/18 18:23 Dose: 4 mg Pantoprazole Sodium (Protonix Inj) 40 mg IVP DAILY [facility] Last Admin: 01/26/18 09:39 Dose: 40 mg Phenol/Menthol (Phenaseptic 1.4% Throat [place]) 0 ml MT Q4 PRN PRN Reason: Sore Throat Timolol Maleate (Timoptic 0.5% Ophth Soln) 0 drop OU BID [facility] Last Admin: 01/25/18 19:45 Dose: Not Given Zolpidem Tartrate (Ambien) 5 mg NG HS [facility] Last Admin: 01/25/18 22:19 Dose: Not Given - Labs Labs: 01/26/18 07:30 01/25/18 07:01 PT 11.2 SECONDS (9.7-12.2) 01/23/18 06:30 INR 1.0 01/23/18 06:30 APTT 25 SECONDS (21-34) 01/23/18 06:30 - Respiratory Exam Respiratory Exam: Clear to Ausculation Bilateral - Cardiovascular Exam Cardiovascular Exam: RRR - GI/Abdominal Exam GI & Abdominal Exam: Soft, Tenderness, Normal Bowel Sounds. absent: Guarding, Mass - Extremities Exam Extremities Exam: absent: Calf Tenderness - Neurological Exam Neurological Exam: Alert, Oriented x3 Assessment and Plan (1) Hernia of small intestine Status: Acute (2) HTN (hypertension) Status: Acute (3) UTI (urinary tract infection) Status: Acute (4) Small bowel obstruction Assessment & Plan: s/p surgery. Tolerating p.o. Status: Acute (5) Vomiting Status: Acute
[2018-01-26] MEDS: Dorzolamide 2% Opht Sol 10ml OU SCH (11:17)
[2018-01-26] MEDS ORDERED: Simethicone 40 mg/0.6 ml Liquid (30 ml) PO SCH (14:00)
--- NOTE | 2018-01-26 14:56 | CP.PCM.DIS ---
Provider - Provider Date of Admission: 01/22/18 21:58 Attending physician: Naman Newman DO Primary care physician: Dr. Louisa Arceo Consults: Dr. Mariano - GI Dr. Sullivan - Surgery Time Spent in preparation of Discharge (in minutes): 35 Diagnosis - Discharge Diagnosis (1) HTN (hypertension) Status: Acute (2) Hernia of small intestine Status: Acute (3) Small bowel obstruction Status: Acute Hospital Course - Lab Results Lab Results: Micro Results 01/22/18 19:59 Urine,Clean Catch Urine Culture - Final No Growth (<1,000 CFU/ML) Most Recent Lab Values WBC 13.2 K/uL (4.8-10.8) H 01/26/18 07:30 RBC 3.48 Mil/uL (3.80-5.20) L 01/26/18 07:30 Hgb 11.5 g/dL (11.0-16.0) 01/26/18 07:30 Hct 33.0 % (34.0-47.0) L 01/26/18 07:30 MCV 94.9 fL (81.0-99.0) 01/26/18 07:30 MCH 33.2 pg (27.0-31.0) H 01/26/18 07:30 MCHC 35.0 g/dL (33.0-37.0) 01/26/18 07:30 RDW 13.4 % (11.5-14.5) 01/26/18 07:30 Plt Count 264 K/uL (130-400) 01/26/18 07:30 MPV 7.6 fL (7.2-11.7) 01/26/18 07:30 Neut % (Auto) 76.1 % (50.0-75.0) H 01/26/18 07:30 Lymph % (Auto) 12.8 % (20.0-40.0) L 01/26/18 07:30 [place] % (Auto) 9.1 % (0.0-10.0) 01/26/18 07:30 Eos % (Auto) 1.7 % (0.0-4.0) 01/26/18 07:30 Baso % (Auto) 0.3 % (0.0-2.0) 01/26/18 07:30 Neut # (Auto) 10.0 K/uL (1.8-7.0) H 01/26/18 07:30 Lymph # (Auto) 1.7 K/uL (1.0-4.3) 01/26/18 07:30 [place] # (Auto) 1.2 K/uL (0.0-0.8) H 01/26/18 07:30 Eos # (Auto) 0.2 K/uL (0.0-0.7) 01/26/18 07:30 Baso # (Auto) 0.0 K/uL (0.0-0.2) 01/26/18 07:30 PT 11.2 SECONDS (9.7-12.2) 01/23/18 06:30 INR 1.0 01/23/18 06:30 APTT 25 SECONDS (21-34) 01/23/18 06:30 Sodium 138 mmol/L (132-148) 01/25/18 07:01 Potassium 3.6 mmol/L (3.6-5.2) 01/25/18 07:01 Chloride 102 mmol/L (98-107) 01/25/18 07:01 Carbon Dioxide 27 mmol/L (22-30) 01/25/18 07:01 Anion Gap 12 (10-20) 01/25/18 07:01 BUN 13 mg/dL (7-17) 01/25/18 07:01 Creatinine 0.9 mg/dL (0.7-1.2) 01/25/18 07:01 Est GFR ( Amer) > 60 01/25/18 07:01 Est GFR (Non-Af Amer) > 60 01/25/18 07:01 POC Glucose (mg/dL) 107 mg/dL (65-110) 01/23/18 00:16 Random Glucose 96 mg/dL (65-105) 01/25/18 07:01 Calcium 8.5 mg/dl (8.6-10.4) L 01/25/18 07:01 Phosphorus 2.0 mg/dL (2.5-4.5) L 01/26/18 07:30 Magnesium 2.1 mg/dL (1.6-2.3) 01/25/18 07:01 Total Bilirubin 0.8 mg/dL (0.2-1.3) 01/25/18 07:01 AST 16 U/L (14-36) 01/25/18 07:01 ALT 24 U/L (9-52) 01/25/18 07:01 Alkaline Phosphatase 55 U/L (38-126) 01/25/18 07:01 Total Protein 5.5 g/dL (6.3-8.3) L 01/25/18 07:01 Albumin 2.9 g/dL (3.5-5.0) L D 01/25/18 07:01 Globulin 2.6 gm/dL (2.2-3.9) 01/25/18 07:01 Albumin/Globulin Ratio 1.1 (1.0-2.1) 01/25/18 07:01 Lipase 211 U/L (23-300) 01/22/18 18:53 Urine Color Yellow (YELLOW) 01/22/18 18:53 Urine Clarity Hazy (Clear) 01/22/18 18:53 Urine pH 5.0 (5.0-8.0) 01/22/18 18:53 Ur Specific [place] 1.021 (1.003-1.030) 01/22/18 18:53 Urine Protein 1+ mg/dL (NEGATIVE) H 01/22/18 18:53 Urine Glucose (UA) Normal mg/dL (Normal) 01/22/18 18:53 Urine Ketones Negative mg/dL (NEGATIVE) 01/22/18 18:53 Urine Blood 1+ (NEGATIVE) H 01/22/18 18:53 Urine Nitrate Negative (NEGATIVE) 01/22/18 18:53 Urine Bilirubin Negative (NEGATIVE) 01/22/18 18:53 Urine Urobilinogen Normal mg/dL (0.2-1.0) 01/22/18 18:53 Ur Leukocyte Esterase 3+ Da/uL (Negative) H 01/22/18 18:53 Urine WBC (Auto) 290 /hpf (0-5) H 01/22/18 18:53 Urine RBC (Auto) 23 /hpf (0-3) H 18 18:53 Ur Squamous Epith Cells 8 /hpf (0-5) H 18 18:53 Urine Bacteria Rare (<OCC) 01/22/18 18:53 Hyaline Casts 11-20 /lpf (0-2) H 01/22/18 18:53 Stool Occult Blood Negative (NEGATIVE) 01/23/18 14:53 Blood Type B POSITIVE 01/24/18 11:53 Blood Type Confirm B POSITIVE 01/24/18 11:53 Antibody Screen Negative 01/24/18 11:53 - Hospital Course Hospital Course: PMHx: stated above Sx: hip replacement, tubal ligation Social: denies NKDA Meds: Ambien 10 mg po HS, Benicar HCTZ 10/12.5 mg po qd, Ecotrin 81 mg po qd, Toprol XL 50 mg po qd, Dorzolamide-Timolol ophthalmic 1 drop twice a day On admission: 77 year old female with past medical history of HTN, gluacoma presented to hospital for abdominal discomfort and N/V. Patient states abd discomfort began about 3 days ago. Discomfort was intermittent with worsening since earlier today. Patient had one episode of vomiting earlier in the day today. She also complains of decreased appetite but was able to tolerate a very small meal earlier in the day. She states that her last BM was 3 days ago and was very small in nature. She states that now she si not passing gas but has a lot of belching. Denies having any F/C, CP, SOB, urinary symptoms. Ct of abd/pelvis done with PO contrast in ED showed acute SBO. Patient was able to tolerate PO contrast intake without any vomiting. During Hospital Stay: Patient was admitted for small bowel obstruction. CT abd/ pelvis showed Acute small bowel obstruction. Transition point in mid-distal jejunum suggesting possible internal hernia. Small amount of pelvic and abdominal ascites. Small hiatal hernia. NG tube was placed and the patient was made NPO. Fluids were given. Surgery and GI were consulted. Patient then had diagnostic laparoscopy w/ reduction of internal hernia and lysis of adhesion on 01/24. Moore was placed and then removed. Patient was able to urinate. NG tube was removed when patient was able to have bowel movements. She is now tolerating diet with N/V. Patient has minimal pain at the surgical site. Patient 's BP was controlled in the hospital without needing to give medications. Patient is stable for discharge home. She is to follow up with her primary care doctor within one week of discharge. She is also to with up with Dr. Sullivan, surgery, within one week of discharge for post surgical follow up. Patient is not to take her blood pressure medications since her pressure was within normal limits during her stay. She is to discuss this with her primary care doctor. Patient is to return to the ER if symptoms worsen. All instructions explained to the patient and she agrees. No heavy lifting 4 weeks, may remove bandages tomorrow, or they may fall off in the shower. OK to shower however do not soak. No baths or hot tubs until seen by Dr. Sullivan. No diet restrictions. You have dissolvable stitches and surgical glue. Do not pick at the glue it will eventually fall off. Discharge Exam - Head Exam Head Exam: ATRAUMATIC - Eye Exam Eye Exam: EOMI Pupil Exam: NORMAL ACCOMODATION - Respiratory Exam Respiratory Exam: NORMAL BREATHING PATTERN. absent: Respiratory Distress - Cardiovascular Exam Cardiovascular Exam: REGULAR RHYTHM, +S1, +S2 - GI/Abdominal Exam GI & Abdominal Exam: Normal Bowel Sounds, Soft, Tenderness. absent: Distended, Firm, Guarding Additional comments: incision sites c/d/i mild tenderness in abd appropriate - Extremities Exam Extremities exam: normal inspection - Back Exam Back exam: NORMAL INSPECTION. absent: CVA tenderness (L), CVA tenderness (R), paraspinal tenderness - Neurological Exam Neurological exam: Alert, CN II-XII Intact, Oriented x3 - Psychiatric Exam Psychiatric exam: Normal Affect, Normal Mood - Skin Skin Exam: Dry, Intact, Normal Color Discharge Plan - Follow Up Plan Condition: GOOD Disposition: HOME/ ROUTINE Instructions: Small Bowel Obstruction, Abdominal Hernia Repair (DC), Urinary Tract Infection in Women (DC) Additional Instructions: Patient is stable for discharge home. She is to follow up with her primary care doctor within one week of discharge. She is also to with up with Dr. Sullivan, surgery, within one week of discharge for post surgical follow up. Patient is not to take her blood pressure medications since her pressure was within normal limits during her stay. She is to discuss this with her primary care doctor. Patient is to return to the ER if symptoms worsen. All instructions explained to the patient and she agrees. No heavy lifting 4 weeks, may remove bandages tomorrow, or they may fall off in the shower. OK to shower however do not soak. No baths or hot tubs until seen by Dr. Sullivan. No diet restrictions. You have dissolvable stitches and surgical glue. Do not pick at the glue it will eventually fall off. Referrals: Yousif Sullivan Jr., MD [Staff Provider] - Jose Roberto Arceo MD [Staff Provider] -
[2018-01-26 16:10] VITALS: PULSE 82; RESP 18; TEMP 98; O2SAT 95
[2018-01-26 16:23] VITALS: BP 104/60
== END 2018-01-26 17:07 | disposition home or self-care (01) | DRG 336 ==
LOC: C.ER 17:34 → C.9E 21:58 → C.6T 23:45
PROVIDERS: ADMIT Hospitalist; ATTEND Hospitalist
PROC: 0D9670Z Drainage of Stomach with Drainage Device, Via Natural or Artificial Opening (ICD-10-PCS; 2018-01-22)
PROC: 0DN84ZZ Release Small Intestine, Percutaneous Endoscopic Approach (ICD-10-PCS; principal; 2018-01-24 11:30)
DX: K56.50 Intestinal adhesions [bands], unspecified as to partial versus complete obstruction (principal); K46.0 Unspecified abdominal hernia with obstruction, without gangrene; N39.0 Urinary tract infection, site not specified; R18.8 Other ascites; K44.9 Diaphragmatic hernia without obstruction or gangrene; E86.0 Dehydration; I10 Essential (primary) hypertension; H40.9 Unspecified glaucoma; G47.00 Insomnia, unspecified; M41.9 Scoliosis, unspecified; Z96.641 Presence of right artificial hip joint; Z98.51 Tubal ligation status